=== PATIENT | male | born 1950 | race Caucasian/White ===

== ENCOUNTER → 2020-12-03 10:07 | Outpatient (CLI) | payer MEDICARE, SELFPAY ==
--- NOTE | 2020-12-03 10:13 | DI.RAD.S_ITS ---
PROCEDURE: FL BARIUM SWALLOW W SPEECH INDICATIONS: Choking sensation COMPARISON: None. TECHNIQUE: Examination was conducted in conjunction with speech pathology per standard protocol. In the lateral projection, filming was performed of the patient swallowing. AP projection filming may also be performed with patient swallowing. COMPARISON: FINDINGS: Function: The oral preparatory phase appears normal, with proper containment. The subsequent oral propulsive phase, pharyngeal phase, and esophageal phase of swallowing also appear normal with all proffered substances. No laryngotracheal penetration or aspiration. No pathologic vallecular pooling. Morphology: No cricopharyngeal bar is identified. No cervical esophageal webs. No Zenker's diverticulum. No strictures. IMPRESSION: No penetration or aspiration. Please see speech pathology report for complete findings. Dictated by: Michael Garcia M.D. on 12/03/2020 at 12:35 Approved by: Michael Garcia M.D. on 12/03/2020 at 12:35
--- NOTE | 2020-12-03 14:43 | ST.SWALLOW ---
Visit Care Team Role Provider Type Arya Inman MD Attending Provider Non-Staff Primary Care Provider Referring Provider Specialty: Internal Medicine Address: [address] [place], [place] [address], [place], [address] Email: Modified Barium Swallow Study JOINERY SETTER OUT Modified Barium Swallow Study Start: 12/03/20 11:20 Freq: Status: Active Protocol: Document 12/03/20 11:25 LNK (Rec: 12/03/20 11:58 LNK [id number]) Modified Barium Swallow Study Total Time Visit Start Time 10:30 Visit Stop Time 11:00 Total Visit Minutes 30 Referral Referring Physician Arya Inman MD Reason for Referral choking sensation Setting Setting Outpatient Care Patient Information Identification Type Name,Date of Patient History Pt was seen for a Modified Barium Swallow Study (MBSS) at the referral of his physician to rule out aspiration or possible Zenker's diverticulum . According to the pt, he will , at times, sense solids entering a pocket in his throat. He reported having 2 pockets (left and right sides of neck) that collect foods. When this happens, he can cough significantly as if choking, or just feel there is something in the pocket that he tries to cough up. He will frequently cough up a piece of undigested food and the coughing ends. Pt noted that this has been happening for ~ 8-10 years, having increased in frequency over the past 2 years. Subjective Observations Pt was seated in the fluoroscopy chair. Instructions and procedures were described to the pt who indicated he understood and agreed to proceed. Patient Positioning Position View Lat-A/P Imaging Lateral View Textures Administered Trials Presented Thin Liquid via Spoon,Thin Liquid via Cup,Amenia Liquid via Cup,Pudding Thick Liquid via Spoon,Regular Textures Oral Phase Source: MBSIMP (TM) (C) Bolus Specific Scoring Grid Lip Closure No Impairment (WNL) Tongue Control During Bolus Hold No Impairment (WNL) Bolus Prep/Mastication No Impairment (WNL) Bolus Transport/Lingual Motion No Impairment (WNL) A/P Lingual Propulsion Delay No Oral Residue WFL Residue Clearing WFL Nasal Regurgitation No Additional Oral Phase Observations Dentition was natural in good hygiene. All structures and functions were observed to be WNL. Diadochokinesis was observed to be WFL. Pharyngeal Phase Source: MBSIMP (TM) (C) Bolus Specific Scoring Grid Delayed Initiation of Pharyngeal Swallow Yes: Premature spillage of bolus to the pyriform sinuses pre-swallow Soft Palate Elevation WFL Tongue Base Strength/Range of Motion Mild Impairment Residue Along the Tongue Base Trace to minimal residue Clearance of Residue Along Tongue Base Minimal Impairment Laryngeal Elevation Moderate Impairment Anterior Hyoid Movement Moderate Impairment Epiglottic Range of Motion Mild Impairment Vallecular Residue Yes Clearance of Vallecular Residue Minimal Impairment Laryngeal Vestibular Closure Moderate Impairment Pharyngeal Stripping Wave Minimal Impairment Posterior Pharyngeal Wall Residue Trace to minimal Clearance of Posterior Pharyngeal Wall WFL Residue Upper Esophageal Sphincter Opening WFL Residue in the Pyriform Sinuses Yes: esophageal backflow into pyriform sinuses observed x4 Clearance of Residue in the Pyriform Mild Impairment Sinuses Esophageal Clearance Upright Position Moderate Impairment Pharyngoesophageal Backflow Observed Yes Additional Pharyngeal Phase Observations The MBSS was reviewed in a [id number] manner to fully evaluate the pt's swallow function. Premature spillage to the pyriform sinuses was observed with reduced laryngeal elevation. Forward movement of the hyoid was also reduced resulting in tongue base and valecullar residue with poor linguapharyngeal contact. Epiglottic inversion was complete, however the laryngeal seal was weak and resulted in penetration of contrast x7 into the laryngeal vestibule (Penetration Aspiration Scale = 3 on 1-8 range). After penetration into the vestibule, contrast remained on the anterior wall of the throid cartilage over the course of the MBSS. Residual contrast was cleared from vestibule with cued throat-clear. No aspiration was observed. Overall pharyngeal residue was observed at the tongue base, the valeculla and the pyriform sinuses. Subsequent swallows (spontaneous and cued) were effective in clearing pharyngeal residue. There was no evidence of A/P View Textures Administered Trials Presented Thin Liquid via Cup,Regular Textures A/P View Observations Residue Observed Pyriform Sinus Right,Pyriform Sinus Left Esophageal Function Reverse Peristalsis Esophageal Clearance Upright Position Minimal Impairment Additional Observations On lateral view, retained residue was observed in the the upper esophagus across all trials. Esophageal backflow was observed through the UES into the pyriform sinuses x4. At times the flow was noted to result in contrast residual approximately one third to one half of the pyriform sinuses. On the A-P view a screening scan of the esophagus to the stomach there was reverse peristalsis observed. Clinical Impressions Dysphagia Type mild pharyngeal phase dysphagia Findings Mild pharyngeal phase dysphagia was observed. The epiglottic seal was weak which allowed penetration into the laryngeal vestibule x7 leaving contrast residue within the anterior wall of the thyroid cartilage. Additionally, there was pharyngoesophageal backflow into the pyriform sinuses observed that potentially could flow into the laryngeal opening. This backflow could contain small pieces of solids with liquids. Both would be capable of triggering cough/choke. The pt reports coughing up some solid foods during these episodes. It is possible that solids could be within the backflow described above. Patient Appropriate for Therapy No Recommendations Treatment Plan Recommended Referrals Primary Care Physician,GI Consult Additional Recommendations/Comments Recommend referral to GI specialist for consultation.
== END ==
PROVIDERS: PCP Internal Medicine; Referring Provider Internal Medicine; Visit Provider Internal Medicine
DX: R13.19 Other dysphagia (principal)
CPT/HCPCS: 74230; 92611

== ENCOUNTER → 2022-10-09 13:20 | Outpatient (CLI) | payer MEDICARE, SELFPAY ==
--- NOTE | 2022-10-09 | DI.CT.S_ITS ---
PROCEDURE: CT UE LT WO CON INDICATIONS: Primary osteoarthritis, left shoulder TECHNIQUE: Noncontrast 1-1.5 mm thick sections acquired from the acromioclavicular joint to the inferior scapula, with coronal and sagittal reformatting. COMPARISON: None. FINDINGS: Image quality: Excellent. Bones: Moderate acromioclavicular joint osteoarthritic changes are seen with joint space narrowing, subchondral sclerosis and downward osteophyte formation depressing the musculotendinous junction of supraspinatus. Severe glenohumeral joint osteoarthritic changes are noted with joint space narrowing, subchondral sclerosis and cyst formation and prominent inferior marginal osteophyte formation. No fracture or dislocation. No suspicious bony lesions. Visualized left upper ribs are intact. Soft tissues: There is no full-thickness rotator cuff tendon rupture. Mild supraspinatus muscle atrophy is noted on sagittal images. No abnormal soft tissue calcifications. No significant joint effusion or calcified intra-articular loose bodies. No axillary lymphadenopathy. Visualized left lung field is clear. IMPRESSION: 1. Severe glenohumeral joint osteoarthritis and moderate acromioclavicular joint osteoarthritis. No shoulder fracture or dislocation. No suspicious bony lesions. 2. No full-thickness rotator cuff tendon rupture. Mild supraspinatus muscle atrophy. No abnormal soft tissue calcifications or calcified intra-articular loose bodies. Dictated by: Manuelito Saini M.D. on 10/09/2022 at 14:47 Approved by: Manuelito Saini M.D. on 10/09/2022 at 15:04
== END ==
PROVIDERS: PCP Internal Medicine; Referring Provider Orthopaedic Surgery; Visit Provider Orthopaedic Surgery
DX: M19.012 Primary osteoarthritis, left shoulder (principal)
CPT/HCPCS: 73200

== ENCOUNTER 2023-02-01 08:58 | Inpatient (IN) | payer MEDICARE, SELFPAY ==
[2023-01-25 13:30] VITALS: BMI 44.3
[2023-02-01] VITALS (9 sets, daily range): BP systolic 125–146; BP diastolic 54–85; PULSE 61–93; RESP 12–21; TEMP 36.1–36.5; O2SAT 95–98; BMI 44.7
--- NOTE | 2023-02-01 07:18 | DI.RAD.S_ITS ---
PROCEDURE: XR SHOULDER LT MIN 2V INDICATIONS: postop TECHNIQUE: 1 views of the shoulder were acquired. COMPARISON: None. FINDINGS: Bones: No fractures or dislocations. No suspicious bony lesions. Visualized ribs appear intact. Left partial shoulder arthroplasty. Soft tissues: No suspicious soft tissue calcifications. Expected postoperative appearance overlying the left shoulder. IMPRESSION: Expected postoperative appearance of the left shoulder arthroplasty. Dictated by: Pedro Garcia M.D. on 02/01/2023 at 15:23 Approved by: Pedro Garcia M.D. on 02/01/2023 at 15:24
[2023-02-01] MEDS: ACETAMINOPHEN 325 MG TABLET 975 MG PO (09:53)
[2023-02-01] MEDS: GABAPENTIN 300 MG CAPSULE PO (09:53)
[2023-02-01] MEDS: LACTATED RINGERS 1,000 ML 42 ML IV ×2 (09:55→13:19)
--- NOTE | 2023-02-01 10:36 | PM.PREOP ---
Pre-operative Note Interval Note History & Physical reviewed/Exam performed by Physician: Yes Changes to H&P: No
[2023-02-01] MEDS: CEFAZOLIN VIAL 1 GM in SODIUM CHLORIDE 0.9% 100 ML IV (11:27)
[2023-02-01] MEDS: CEFAZOLIN 2 GM/100 ML PREMIX 100 ML IV (11:27)
[2023-02-01] MEDS: TRANEXAMIC ACID 1,000 MG VIAL 1000 MG INJ ×2 (11:27→14:04)
--- NOTE | 2023-02-01 12:08 | SUR.OPER ---
Beach chair with Ewa/Julia shoulder positioner. Lower body on padded OR bed. Head in foam padded head cradle, secured with straps. Non-operative arm secured <90 degrees abduction. Pillow under knees. Safety belt at thigh. Cloth tape over blanket over lower legs.
--- NOTE | 2023-02-01 14:13 | PM.OP.1 ---
Operative Date/Time/Diagnoses Date of procedure: 02/01/23 Time of procedure: 14:14 Pre-op diagnosis: Left shoulder glenohumeral arthritis Post-op diagnosis: same Procedure & Clinicians Procedure: Left anatomic total shoulder arthroplasty Same procedure as scheduled: Yes Indications: Indications: This is a 72-year-old male who has primary osteoarthritis of the glenohumeral joint. Symptoms have been present for years, insidious onset. Patient has failed conservative therapy including injections, physical therapy, anti-inflammatories and activity modification. After extensive discussion in clinic, they wished to go forward with surgery. Risks and benefits were described including the risk of infection, bleeding, damage to internal structures including nerves. We also discussed the risk of failure of surgery and the need for revision surgery as well as the risk of anesthesia. The patient expressed understanding with these risks and wished to go forward with surgery. Surgeon: Kushal Tatum Land Development Manager: Ursula Galloway Anesthesia Type: General Operative Notes Findings: Findings: Osteoarthritis of the glenoid and humeral head as noted on preoperative imaging and under direct visualization Prosthetic devices, grafts, tissues, transplants, or devices: [employer]plants CortiLoc Pegged Glenoid UHMWPE L40 Simpliciti Nucleus Size 3 Simpliciti CoCr head size 50 x 19 Estimated Blood Loss (mL): 50 Procedure in detail: Operative note: Patient was seen in the preoperative holding unit. The correct left shoulder was identified and marked with my initials. Again we discussed the risks and benefits of surgery and they wished to go forward with surgery. The patient was brought back to the operating room and placed supine on the operating table. he underwent smooth endotracheal intubation. All prominences were padded and they were placed into the beach chair position. Intravenous antibiotics were given. The left shoulder was then prepped with the standard sterile preparation and draping. A time-out was then performed in my initials were again identified on the correct shoulder. 2 g of IV tranexamic acid was given. A standard deltopectoral incision was made. Skin flaps were made. The cephalic vein was identified and retracted laterally. This was protected throughout the remainder of the case. Sharp dissection was made along the deltoid, subacromial and subcoracoid space to release adhesions. The conjoined tendon was identified and the axillary nerve was palpated and continuous using the tug test. It was protected throughout the remainder of the case. A brown retractor was placed underneath the deltoid muscle and a darach retractor underneath the conjoint tendon. The anterior circumflex artery and associated veins on the lower border of the subscapularis were identified and tied off using 0-Vicryl. The biceps tendon was identified in the bicipital groove. This was released from its sheath, and taken from its origin on the glenoid and tied into the pectoralis tendon for a solid tenodesis. We then began a subscapularis peel. The subscapularis was tagged with an Ethibond suture. A 360 degree circumferential release of the subscapularis was performed with protection of the axillary nerve. The coracohumeral ligament was released at the base of the coracoid. The coracoacromial ligament was left intact. The shoulder was then dislocated. Osteophytes were removed using combination of rongeur and osteotome. The rotator cuff was noted to be intact. Using an oscillating saw a conservative humeral head cut was made using the patient's solomon version. The head was measured and a guide for size 3 simpliciti humeral head was used to drill a central hole followed by impaction. Attention was then turned to the glenoid. After retracting the humeral head posteriorly, release of the capsule and labrum was performed. Central guidewire was placed. The glenoid was then reamed and a size large 40 guide was used. Peripheral holes were drilled. At this point dilute Betadine wash was performed for 2 minutes. Medium viscosity cement was mixed and the drill holes were completely dried. A all polyethylene pegged glenoid was then selected, and cemented into the glenoid. Turning back to the humerus, the humeral head was delivered and 3 seperate Nice Loupes were passed through drill holes in the bicipital groove. The Size 3 nucleus was then impacted into the humerus and a size 50 x 19 stemless humeral head was placed. The shoulder was then reduced and again brought through range of motion and was felt to be stable. The interval was too wide to be closed. The subscapularis was then repaired using a modified racking hitch with niece loupes. The deltopectoral interval was then closed with #2 Ethibond. The skin was closed with 2-0 PDS and makeda followed by Aquacel dressing. Patient was awoken from anesthesia and brought back to the postoperative recovery unit without issue. They were placed into a sling. Assisting participation: This operation could not have been safely performed (without compromising the technical results or length of the procedure) without the assistance of a skilled university administrative assistant. The university administrative assistant was medically necessary for proper positioning, retraction and manipulation of instruments, proper exposure, graft prep, and manipulation of tissue. Complications: none Post-operative Condition: stable Disposition: PACU Plan for aftercare: Postoperative instructions: Sling to remain on for 6 weeks. No external rotation past neutral for 6 weeks. Okay for sling to come off for shower and gentle pendulum exercises. Okay to shower over the Aquacel dressing. If any water gets underneath the dressing, remove the dressing. First postoperative visit in 2 weeks.
[2023-02-01] MEDS: KETOROLAC 30 MG/ML VIAL IV (14:48)
[2023-02-01] MEDS: OXYCODONE IR 5 MG TABLET PO (14:49)
[2023-02-01] MEDS: hydrOXYzine pamoate 25 MG CAPSULE PO (14:49)
--- NOTE | 2023-02-01 14:56 | SUR.PHASEI ---
Started on IS. Able to achieve 1250cc.
== END 2023-02-01 15:42 | disposition home or self-care (01) | DRG 483 ==
PROVIDERS: Admitting Provider Orthopaedic Surgery; PCP Internal Medicine; Referring Provider Orthopaedic Surgery; Visit Provider Orthopaedic Surgery
PROC: 0RRK0JZ Replacement of Left Shoulder Joint with Synthetic Substitute, Open Approach (ICD-10-PCS; CPT 23472; principal; 2023-02-01 10:45)
DX: M19.012 Primary osteoarthritis, left shoulder (principal); Z20.822 Contact with and (suspected) exposure to COVID-19
CPT/HCPCS: 64450; 73030; C1776; C1713; J0690; J1100; J1885; J2250; J2405; J2704; J3010

== ENCOUNTER 2024-04-07 13:45 | Outpatient (RCR) | payer MEDICARE, SELFPAY ==
--- NOTE | 2024-01-07 17:28 | PT.OIE ---
Current Diagnoses Lymphedema, not elsewhere classified (01/07/24) Soft tissue disorder, unspecified (01/07/24) Past Medical History (Last Updated 01/25/23 @ 14:14 by Maritza Randhawa RN) Asthma Deviated nasal septum Easy bruisability HLD (hyperlipidemia) HTN (hypertension) Lower back pain Macular pucker, right eye Neuropathy RAMON on CPAP Osteoarthritis Pre-diabetes Past Surgical History (Last Updated 01/25/23 @ 14:14 by Maritza Randhawa RN) History of total left knee replacement History of total right knee replacement Hx of bilateral cataract extraction Hx of hernia repair (~09/2022) Visit Care Team Role Provider Type Arya Inman MD Attending Provider Non-Staff Family Provider Primary Care Provider Referring Provider Specialty: Internal Medicine Address: [address] [place] [address] [address], [place], [address] Email: Physical Therapy Initial Evaluation PT-OP-A Visit Information Start: 01/03/24 16:38 Freq: Status: Active Protocol: Document 01/07/24 09:49 SAK (Rec: 01/07/24 10:36 [facility] [id number]) Out-Patient Physical Therapy Visit Information Visit Information Visit Type Initial Evaluation Visit Start Time 09:49 Visit Stop Time 11:13 Visit Number 1 Evaluation Information Evaluation Date 01/07/24 PT-OP-B Current Condition Start: 01/03/24 16:38 Freq: Status: Active Protocol: Document 01/07/24 09:49 SAK (Rec: 01/07/24 10:36 [facility] [id number]) Current Condition History of Current Condition Onset Date 15 yrs Current Complaints scott LE swelling History of Current Condition Reports long history of episodic swelling LE's, especially with travel, then when home takes 2-3 weeks for it to go away, more recently took 2-3 month. Happens with driving, trains, flying. Just got back from [place]. Doesn't wear compression stocking, weight makes him unable to do. Had scott TKA's 2014 and 2015. Has some knee high compression stockings, doesn't wear. Saw vascular surgeon who told him he didn't have venous insufficiency. 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 Has neuropathy, some sensory loss. Treatment Goals Patient/Caregiver Goals Decrease and be able to self manage lymphedema. Prior Functional Status Baseline Function- ADL's Independent Baseline Function- Mobility Independent Baseline Function- Work/School retired Current Functional Impairments (Reported) Functional Limitations- Mobility/Gait indep, slow, labored. Functional Limitations- Recreation/ cooking Hobbies PT-OP-C Subjective Start: 01/03/24 16:38 Freq: Status: Active Protocol: Document 01/07/24 09:49 [facility] (Rec: 01/07/24 17:26 [facility] [id number]) Patient Questionnaires Lymphedema Life Impact Score Lymphedema Score 39 PT-OP-G Mobility & Gait Start: 01/03/24 16:38 Freq: Status: Active Protocol: Document 01/07/24 09:49 [facility] (Rec: 01/07/24 11:14 [facility] [id number]) OP Gait Assessment Gait Gait Assistance Required: Independent Assistive Devices Assistive Device None Gait Deviations General Gait Pattern Decreased Stride Length, Decreased Feet Clearance PT-OP-J Posture/Palpation/Skin Start: 01/03/24 16:38 Freq: Status: Active Protocol: Document 01/07/24 09:49 [facility] (Rec: 01/07/24 11:14 [facility] [id number]) Palpation Assessment Location scott LE's Palpation Findings Edema,Soft Tissue Tightness Palpation Details no increased warmth or fibrosis Skin Assessment Other Assessments Skin Assessment Comments Dry but no thickening or fibrosis, no increased warmch, no discoloration. Several regions of varicosiy scott LE's PT-OP-K Range of Motion Start: 01/03/24 16:38 Freq: Status: Active Protocol: Document 01/07/24 09:49 [facility] (Rec: 01/07/24 11:14 [facility] [id number]) Hip Goniometric Range of Motion Hip scott Hip ROM WFL Yes Knee Goniometric Range of Motion Knee scott Knee ROM WFL Yes Ankle and Foot Goniometric Range of Motion Ankle and Foot scott Ankle/Foot ROM WFL No Dorsiflexion with Knee Flexed 0 Dorsiflexion with Knee Extended 5 Plantarflexion 40 Ankle and Foot ROM Limitations ROM Limitations Soft Tissue Tightness,Swelling PT-OP-L Special Tests Start: 01/03/24 16:38 Freq: Status: Active Protocol: Document 01/07/24 09:49 [facility] (Rec: 01/07/24 17:28 [facility] [id number]) Special Tests Other Special Tests Special Tests Stemmer: positive scott PT-OP-N Lymphedema Start: 01/03/24 16:38 Freq: Status: Active Protocol: Document 01/07/24 09:49 [facility] (Rec: 01/07/24 10:36 [facility] [id number]) Lymphedema Measurements Lower Extremity Circumference Measurements Right Affected MT Heads 27.3 cm Mid-foot 28.3 cm Medial Malleolus 39.6 cm 10 cm From Medial Malleolus 39.6 cm 20 cm From Medial Malleolus 46.8 cm 30 cm From Medial Malleolus 52.3 cm 40 cm From Medial Malleolus 47.7 cm 50 cm From Medial Malleolus 59.2 cm 60 cm From Medial Malleolus 65.7 cm 70 cm From Medial Malleolus 74 cm Knee Joint 54 cm Left Affected MT Heads 27.9 cm Mid-foot 29.5 cm Medial Malleolus 40.2 cm 10 cm From Medial Malleolus 42.3 cm 20 cm From Medial Malleolus 52.5 cm 30 cm From Medial Malleolus 54.7 cm 40 cm From Medial Malleolus 47.8 cm 50 cm From Medial Malleolus 53.7 cm 60 cm From Medial Malleolus 68 cm 70 cm From Medial Malleolus 74 cm Knee Joint 60.2 cm PT-OP-Q Treatments Start: 01/03/24 16:38 Freq: Status: Active Protocol: Document 01/07/24 09:49 [facility] (Rec: 01/07/24 11:14 [facility] [id number]) Cardio Equipment Recumbent Stepper (Sci-Fit) Duration (Minutes) 10 Resistance 1 Seat Position 16 Other to facilitate lymphatic flow Lymphedema Treatment Manual Lymphatic Drainage Location performed and included patient instruction Lymphedema Wrapping Other discussed and showed method and needed supplies. Patient to check with insurance for coverage. Compression Garment Assessment Compression Garment Assessment Details patient to bring compression stockings next session Patient Education Lymphedema Pathology instructed using employment officer Lymphedema Prevention issued handout and discussed Lymphedema Precautions issued handout and discussed Compression Garments general discussion of benefit, need for consistsency, patient to brin Self Manual Lymphatic Drainage instructed and issued handout Sequential Lymphedema Exercises instructed and issued handout PT-OP-T Assessment and Plan Start: 01/03/24 16:38 Freq: Status: Active Protocol: Document 01/07/24 09:49 [facility] (Rec: 01/07/24 17:26 [facility] [id number]) Physical Therapy Assessment Rehab Potential Rehabilitation Potential Good Evaluation Complexity Number of Personal Factors/Comorbidities 1-2 Number of Body Systems Impaired 3 Clinical Presentation at Evaluation Evolving Impairments Impairments Edema,Integument,ROM Goals Three Impairment decreased ankle ROM and flexibility impacting function Short Term Goal (STG) Patient will be instructed in ROM and flexibility exercises for scott ankles STG Duration 03/02/24 Retirement Goal (LTG) Improve ROM and flexibility to WNL for improved function scott ankles LTG Duration 04/08/24 Two Impairment Lymphedema Life impact scale 28% Short Term Goal (STG) Decrease Lymphedema Life Impact Scale to no greater than 18% as measure of improved activity tolerance and quality of life STG Duration 03/02/24 Plug Drill Operator Goal (LTG) Decrease Lymphedema Life Impact Scale to no greater than 10% as measure of improved activity tolerance and quality of life LTG Duration 04/08/24 One Impairment Lymphedema scott LE's Short Term Goal (STG) Patient will be instructed in all aspects of lymphedema self -care to include skin care, elevation, self-massage, self- bandaging/compression options, and lymphedema exercises. STG Duration 03/02/24 Retirement Goal (LTG) Decrease patient?s lymphedema to a stable level (no increase or decrease greater than 1 cm over the course of 1 week), patient to be independent with all aspects of self-care for lymphedema, and will obtain appropriate compression garment for lymphedema management in the home. LTG Duration 04/08/24 Assessment Summary Assessment Patient presents to PT with function limiting lymphedema of unusual presentation with frequent exacerbations with all kinds of travel. He doesn 't wear any compression garments or have knowledge of how to self manage his lymphedema. He has a family history including mother and grandmother who he reports had fluid leaking out of their legs as they got older. Patient is at high risk for complications from lymphedema including cellulitis and wounds. FEel he would benefit from PT to address above goals to decrease his lymphedema, improve his mobility, obtain appropriate compression garments and be able to self manage his lymphedema fci. Feel he is a good candidate for a sequential pneumatic pump to be used in his home to assist with self management and prevent complications. Physical Therapy Plan Frequency and Duration Frequency of Treatment 20 visits Duration of treatment (weeks) 12 Plan of Care Start Date 01/07/24 Plan of Care End Date 04/08/24 Therapeutic Interventions Therapeutic Interventions Home Exercise Program, Lymphedema Management,Manual Therapy,Patient/Caregiver Education,Self-Care/Home Management,Soft Tissue Mobilization,Taping, Therapeutic Exercises Modalities Vasopneumatic Devices Next Visit Focus/Plan Next Note Type Treatment Note Next Visit Plan MLD bilateral LE's, skin care, lymphedema exercises, evaluate patient compression stockings, compression bandaging, possible trial sequential pneumatic pump
--- NOTE | 2024-01-07 17:29 | PT.OPPOC ---
Physical, Occupational & Speech Therapy At [facility] Current Diagnoses Lymphedema, not elsewhere classified (01/07/24) Soft tissue disorder, unspecified (01/07/24) Visit Care Team Role Provider Type Arya Inman MD Attending Provider Non-Staff Family Provider Primary Care Provider Referring Provider Specialty: Internal Medicine Address: [facility] [address], [place], [address] Email: Plan Of Care PT-OP-T Assessment and Plan Start: 01/03/24 16:38 Freq: Status: Active Protocol: Document 01/07/24 09:49 SAK (Rec: 01/07/24 17:26 [facility]AK [id number]) Physical Therapy Assessment Rehab Potential Rehabilitation Potential Good Evaluation Complexity Number of Personal Factors/Comorbidities 1-2 Number of Body Systems Impaired 3 Clinical Presentation at Evaluation Evolving Impairments Impairments Edema,Integument,ROM Goals Three Impairment decreased ankle ROM and flexibility impacting function Short Term Goal (STG) Patient will be instructed in ROM and flexibility exercises for scott ankles STG Duration 03/02/24 Long-Term Goal (LTG) Improve ROM and flexibility to WNL for improved function scott ankles LTG Duration 04/08/24 Two Impairment Lymphedema Life impact scale 28% Short Term Goal (STG) Decrease Lymphedema Life Impact Scale to no greater than 18% as measure of improved activity tolerance and quality of life STG Duration 03/02/24 Long-Term Goal (LTG) Decrease Lymphedema Life Impact Scale to no greater than 10% as measure of improved activity tolerance and quality of life LTG Duration 04/08/24 One Impairment Lymphedema scott LE's Short Term Goal (STG) Patient will be instructed in all aspects of lymphedema self -care to include skin care, elevation, self-massage, self- bandaging/compression options, and lymphedema exercises. STG Duration 03/02/24 Long-Term Goal (LTG) Decrease patient?s lymphedema to a stable level (no increase or decrease greater than 1 cm over the course of 1 week), patient to be independent with all aspects of self-care for lymphedema, and will obtain appropriate compression garment for lymphedema management in the home. LTG Duration 04/08/24 Assessment Summary Assessment Patient presents to PT with function limiting lymphedema of unusual presentation with frequent exacerbations with all kinds of travel. He doesn 't wear any compression garments or have knowledge of how to self manage his lymphedema. He has a family history including mother and grandmother who he reports had fluid leaking out of their legs as they got older. Patient is at high risk for complications from lymphedema including cellulitis and wounds. FEel he would benefit from PT to address above goals to decrease his lymphedema, improve his mobility, obtain appropriate compression garments and be able to self manage his lymphedema intermediate frame tender. Feel he is a good candidate for a sequential pneumatic pump to be used in his home to assist with self management and prevent complications. Physical Therapy Plan Frequency and Duration Frequency of Treatment 20 visits Duration of treatment (weeks) 12 Plan of Care Start Date 01/07/24 Plan of Care End Date 04/08/24 Therapeutic Interventions Therapeutic Interventions Home Exercise Program, Lymphedema Management,Manual Therapy,Patient/Caregiver Education,Self-Care/Home Management,Soft Tissue Mobilization,Taping, Therapeutic Exercises Modalities Vasopneumatic Devices Next Visit Focus/Plan Next Note Type Treatment Note Next Visit Plan MLD bilateral LE's, skin care, lymphedema exercises, evaluate patient compression stockings, compression bandaging, possible trial sequential pneumatic pump Plan of Care Dates Plan of Care Start Date 01/07/24 Plan of Care End Date 04/08/24 Electronically Signed by: Rach Valente, PT 01/07/24 [id number] If you are in agreement with this Plan of Care, please return a signed and dated copy. I have reviewed this Plan of Care and certify that the skilled therapy services above are required to meet the patient?s needs. Physician Signature Date Printed Name and Credentials Clinical Instructor Signature Printed Name and Credentials
--- NOTE | 2024-01-09 12:07 | PT.OTN ---
Current Diagnoses Lymphedema, not elsewhere classified (01/09/24) Soft tissue disorder, unspecified (01/09/24) Physical Therapy Treatment Note PT-OP-A Visit Information Start: 01/03/24 16:38 Freq: Status: Active Protocol: Document 01/09/24 10:31 SAK (Rec: 01/09/24 10:58 [facility] [id number]) Out-Patient Physical Therapy Visit Information Visit Information Visit Type Treatment Note Visit Start Time 10:33 Visit Stop Time 12:03 Visit Number 2 Evaluation Information Evaluation Date 01/07/24 PT-OP-B Current Condition Start: 01/03/24 16:38 Freq: Status: Active Protocol: Document 01/09/24 10:31 SAK (Rec: 01/09/24 10:58 [facility] [id number]) Current Condition History of Current Condition Onset Date 15 yrs Current Complaints scott LE swelling History of Current Condition Reports long history of episodic swelling LE's, especially with travel, then when home takes 2-3 weeks for it to go away, more recently took 2-3 month. Happens with driving, trains, flying. Just got back from [place]. Doesn't wear compression stocking, weight makes him unable to do. Had scott TKA's 2014 and 2015. Has some knee high compression stockings, doesn't wear. Saw vascular surgeon who told him he didn't have venous insufficiency. 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 Has neuropathy, some sensory loss. Treatment Goals Patient/Caregiver Goals Decrease and be able to self manage lymphedema. PT-OP-C Subjective Start: 01/03/24 16:38 Freq: Status: Active Protocol: Document 01/09/24 10:31 SAK (Rec: 01/09/24 10:58 [facility] [id number]) OP-PT Subjective Patient Comments Patient Comments REports feeling the lymphatic massage seems to be helping both PT and him doing at home. Lost 4 lbs of fluid last couple days. PT-OP-G Mobility & Gait Start: 01/03/24 16:38 Freq: Status: Active Protocol: Document 01/07/24 09:49 SAK (Rec: 01/07/24 11:14 [facility] [id number]) OP Gait Assessment Gait Gait Assistance Required: Independent Assistive Devices Assistive Device None Gait Deviations General Gait Pattern Decreased Stride Length, Decreased Feet Clearance PT-OP-J Posture/Palpation/Skin Start: 01/03/24 16:38 Freq: Status: Active Protocol: Document 01/07/24 09:49 [facility] (Rec: 01/07/24 11:14 [facility] [id number]) Palpation Assessment Location scott LE's Palpation Findings Edema,Soft Tissue Tightness Palpation Details no increased warmth or fibrosis Skin Assessment Other Assessments Skin Assessment Comments Dry but no thickening or fibrosis, no increased warmch, no discoloration. Several regions of varicosiy scott LE's PT-OP-K Range of Motion Start: 01/03/24 16:38 Freq: Status: Active Protocol: Document 01/07/24 09:49 [facility] (Rec: 01/07/24 11:14 [facility] [id number]) Hip Goniometric Range of Motion Hip scott Hip ROM WFL Yes Knee Goniometric Range of Motion Knee scott Knee ROM WFL Yes Ankle and Foot Goniometric Range of Motion Ankle and Foot scott Ankle/Foot ROM WFL No Dorsiflexion with Knee Flexed 0 Dorsiflexion with Knee Extended 5 Plantarflexion 40 Ankle and Foot ROM Limitations ROM Limitations Soft Tissue Tightness,Swelling PT-OP-L Special Tests Start: 01/03/24 16:38 Freq: Status: Active Protocol: Document 01/07/24 09:49 [facility] (Rec: 01/07/24 17:28 [facility] [id number]) Special Tests Other Special Tests Special Tests Stemmer: positive scott PT-OP-N Lymphedema Start: 01/03/24 16:38 Freq: Status: Active Protocol: Document 01/09/24 10:31 [facility] (Rec: 01/09/24 10:58 [facility] [id number]) Lymphedema Measurements Lower Extremity Circumference Measurements Right Affected MT Heads 27.3 cm Mid-foot 28 cm Medial Malleolus 38.3 cm 10 cm From Medial Malleolus 38.3 cm 20 cm From Medial Malleolus 46.8 cm 30 cm From Medial Malleolus 52.3 cm 40 cm From Medial Malleolus 47.6 cm 50 cm From Medial Malleolus 57.9 cm 60 cm From Medial Malleolus 65.4 cm Knee Joint 53.5 cm Left Affected MT Heads 27.9 cm Mid-foot 29.5 cm Medial Malleolus 39.7 cm 10 cm From Medial Malleolus 40.8 cm 20 cm From Medial Malleolus 50.8 cm 30 cm From Medial Malleolus 54.9 cm 40 cm From Medial Malleolus 47.7 cm 50 cm From Medial Malleolus 60.2 cm 60 cm From Medial Malleolus 68.3 cm 70 cm From Medial Malleolus 74 cm Knee Joint 52 cm PT-OP-Q Treatments Start: 01/03/24 16:38 Freq: Status: Active Protocol: Document 01/09/24 10:31 [facility] (Rec: 01/09/24 10:58 [facility] [id number]) Cardio Equipment Recumbent Stepper (Sci-Fit) Duration (Minutes) 10 Resistance 1 Seat Position 16 Other to facilitate lymphatic flow Lymphedema Treatment Manual Lymphatic Drainage Location performed and included patient instruction Lymphedema Wrapping Other KT tape; 3 fan strips to left LE from toes to knee trial Patient unable to bandage on his own so no bandaging done. Sequential Lymphedema Exercises Location scott LE's Comments Sci-Fit x 10 min as above Compression Garment Assessment Compression Garment Assessment Details patient brought compression stockings; too small at this time Patient Education Other issued handouts regarding plane travel, precautions. PT-OP-R Modalities Start: 01/03/24 16:38 Freq: Status: Active Protocol: Document 01/09/24 10:31 [facility] (Rec: 01/09/24 12:06 [facility] [id number]) Compression Pump Treatment Treatment Location scott LE's Pressure Amount (mmHg) (mmHG) 40 Inflation Time (Seconds) 30 Deflation Time (Seconds) 10 Treatment Tolerance Good Treatment Comments noted decrease in edema after pump scott LE's PT-OP-T Assessment and Plan Start: 01/03/24 16:38 Freq: Status: Active Protocol: Document 01/09/24 10:31 [facility] (Rec: 01/09/24 10:58 [facility] [id number]) Physical Therapy Assessment Goals Three Impairment decreased ankle ROM and flexibility impacting function Short Term Goal (STG) Patient will be instructed in ROM and flexibility exercises for scott ankles STG Duration 03/02/24 Carroting Machine Operator Goal (LTG) Improve ROM and flexibility to WNL for improved function scott ankles LTG Duration 04/08/24 Two Impairment Lymphedema Life impact scale 28% Short Term Goal (STG) Decrease Lymphedema Life Impact Scale to no greater than 18% as measure of improved activity tolerance and quality of life STG Duration 03/02/24 Carroting Machine Operator Goal (LTG) Decrease Lymphedema Life Impact Scale to no greater than 10% as measure of improved activity tolerance and quality of life LTG Duration 04/08/24 One Impairment Lymphedema scott LE's Short Term Goal (STG) Patient will be instructed in all aspects of lymphedema self -care to include skin care, elevation, self-massage, self- bandaging/compression options, and lymphedema exercises. STG Duration 03/02/24 Penitentiary Goal (LTG) Decrease patient?s lymphedema to a stable level (no increase or decrease greater than 1 cm over the course of 1 week), patient to be independent with all aspects of self-care for lymphedema, and will obtain appropriate compression garment for lymphedema management in the home. LTG Duration 04/08/24 Progress Towards Goals Progress Towards Goals Progressing Toward Goals Assessment Summary Assessment Patient compliant to MLD at home, most circumferential measurements decreased. Patient current compression stockings still too small, can 't self bandage, trial KT tape to one side today to see if helpful (left). Physical Therapy Plan Frequency and Duration Frequency of Treatment 20 visits Duration of treatment (weeks) 12 Plan of Care Start Date 01/07/24 Plan of Care End Date 04/08/24 Therapeutic Interventions Therapeutic Interventions Home Exercise Program, Lymphedema Management,Manual Therapy,Patient/Caregiver Education,Self-Care/Home Management,Soft Tissue Mobilization,Taping, Therapeutic Exercises Modalities Vasopneumatic Devices Next Visit Focus/Plan Next Note Type Treatment Note Next Visit Plan Continue CDT, assess response to KT taping.
--- NOTE | 2024-01-14 11:16 | PT.OTN ---
Current Diagnoses Lymphedema, not elsewhere classified (01/14/24) Soft tissue disorder, unspecified (01/14/24) Physical Therapy Treatment Note PT-OP-A Visit Information Start: 01/03/24 16:38 Freq: Status: Active Protocol: Document 01/14/24 09:54 [facility]AK (Rec: 01/14/24 11:15 [facility] [id number]) Out-Patient Physical Therapy Visit Information Visit Information Visit Type Treatment Note Visit Start Time 09:50 Visit Stop Time 11:15 Visit Number 3 Evaluation Information Evaluation Date 01/07/24 PT-OP-B Current Condition Start: 01/03/24 16:38 Freq: Status: Active Protocol: Document 01/14/24 09:54 SAK (Rec: 01/14/24 11:15 [facility] [id number]) Current Condition History of Current Condition Onset Date 15 yrs Current Complaints scott LE swelling History of Current Condition Reports long history of episodic swelling LE's, especially with travel, then when home takes 2-3 weeks for it to go away, more recently took 2-3 month. Happens with driving, trains, flying. Just got back from [place]. Doesn't wear compression stocking, weight makes him unable to do. Had scott TKA's 2014 and 2015. Has some knee high compression stockings, doesn't wear. Saw vascular surgeon who told him he didn't have venous insufficiency. 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 Has neuropathy, some sensory loss. Treatment Goals Patient/Caregiver Goals Decrease and be able to self manage lymphedema. PT-OP-C Subjective Start: 01/03/24 16:38 Freq: Status: Active Protocol: Document 01/14/24 09:54 SAK (Rec: 01/14/24 11:15 [facility] [id number]) OP-PT Subjective Patient Comments Patient Comments Feels like legs are continuing to get smaller PT-OP-G Mobility & Gait Start: 01/03/24 16:38 Freq: Status: Active Protocol: Document 01/07/24 09:49 SAK (Rec: 01/07/24 11:14 [facility] [id number]) OP Gait Assessment Gait Gait Assistance Required: Independent Assistive Devices Assistive Device None Gait Deviations General Gait Pattern Decreased Stride Length, Decreased Feet Clearance PT-OP-J Posture/Palpation/Skin Start: 01/03/24 16:38 Freq: Status: Active Protocol: Document 01/07/24 09:49 SAK (Rec: 01/07/24 11:14 [facility] [id number]) Palpation Assessment Location scott LE's Palpation Findings Edema,Soft Tissue Tightness Palpation Details no increased warmth or fibrosis Skin Assessment Other Assessments Skin Assessment Comments Dry but no thickening or fibrosis, no increased warmch, no discoloration. Several regions of varicosiy scott LE's PT-OP-K Range of Motion Start: 01/03/24 16:38 Freq: Status: Active Protocol: Document 01/07/24 09:49 [facility] (Rec: 01/07/24 11:14 [facility] [id number]) Hip Goniometric Range of Motion Hip scott Hip ROM WFL Yes Knee Goniometric Range of Motion Knee scott Knee ROM WFL Yes Ankle and Foot Goniometric Range of Motion Ankle and Foot scott Ankle/Foot ROM WFL No Dorsiflexion with Knee Flexed 0 Dorsiflexion with Knee Extended 5 Plantarflexion 40 Ankle and Foot ROM Limitations ROM Limitations Soft Tissue Tightness,Swelling PT-OP-L Special Tests Start: 01/03/24 16:38 Freq: Status: Active Protocol: Document 01/07/24 09:49 [facility] (Rec: 01/07/24 17:28 [facility] [id number]) Special Tests Other Special Tests Special Tests Stemmer: positive scott PT-OP-N Lymphedema Start: 01/03/24 16:38 Freq: Status: Active Protocol: Document 01/14/24 09:54 [facility] (Rec: 01/14/24 11:15 [facility] [id number]) Lymphedema Measurements Lower Extremity Circumference Measurements Right Affected MT Heads 26.9 cm Mid-foot 27.8 cm Medial Malleolus 37.8 cm 10 cm From Medial Malleolus 35.7 cm 20 cm From Medial Malleolus 44.8 cm 30 cm From Medial Malleolus 50.5 cm 40 cm From Medial Malleolus 46.5 cm 50 cm From Medial Malleolus 58.2 cm 60 cm From Medial Malleolus 64.8 cm 70 cm From Medial Malleolus 73.8 cm Knee Joint 53.3 cm Left Affected MT Heads 27.5 cm Mid-foot 28.7 cm Medial Malleolus 39 cm 10 cm From Medial Malleolus 38.2 cm 20 cm From Medial Malleolus 48.5 cm 30 cm From Medial Malleolus 53.7 cm 40 cm From Medial Malleolus 47.1 cm 50 cm From Medial Malleolus 59.3 cm 60 cm From Medial Malleolus 67 cm 70 cm From Medial Malleolus 74.7 cm Knee Joint 50.7 cm PT-OP-Q Treatments Start: 01/03/24 16:38 Freq: Status: Active Protocol: Document 01/14/24 09:54 [facility] (Rec: 01/14/24 11:15 [facility] [id number]) Cardio Equipment Recumbent Stepper (Sci-Fit) Duration (Minutes) 10 Resistance 2 Seat Position 16 Other to facilitate lymphatic flow Lymphedema Treatment Manual Lymphatic Drainage Location performed and included patient instruction Lymphedema Wrapping Other application of compression stockings with donning aid with assist. Neither cage or slider worked well for patient ; PT manual assist, shown use of Dycem to assist with putting stockings on Sequential Lymphedema Exercises Location scott LE's Comments Sci-Fit x 10 min as above Compression Garment Assessment Compression Garment Assessment Details thinner compression stockings brought today; appear 15-20 mm Hg, too short but able to be donned. PT-OP-R Modalities Start: 01/03/24 16:38 Freq: Status: Active Protocol: Document 01/14/24 09:54 [facility] (Rec: 01/14/24 11:15 [facility] [id number]) Compression Pump Treatment Treatment Location scott LE's Pressure Amount (mmHg) (mmHG) 40 Inflation Time (Seconds) 30 Deflation Time (Seconds) 10 Treatment Tolerance Good Treatment Comments during MLD to opposite LE. PT-OP-T Assessment and Plan Start: 01/03/24 16:38 Freq: Status: Active Protocol: Document 01/14/24 09:54 [facility] (Rec: 01/14/24 11:15 [facility] [id number]) Physical Therapy Assessment Goals Three Impairment decreased ankle ROM and flexibility impacting function Short Term Goal (STG) Patient will be instructed in ROM and flexibility exercises for scott ankles STG Duration 03/02/24 Pai Gow Dealer Goal (LTG) Improve ROM and flexibility to WNL for improved function scott ankles LTG Duration 04/08/24 Two Impairment Lymphedema Life impact scale 28% Short Term Goal (STG) Decrease Lymphedema Life Impact Scale to no greater than 18% as measure of improved activity tolerance and quality of life STG Duration 03/02/24 Pai Gow Dealer Goal (LTG) Decrease Lymphedema Life Impact Scale to no greater than 10% as measure of improved activity tolerance and quality of life LTG Duration 04/08/24 One Impairment Lymphedema scott LE's Short Term Goal (STG) Patient will be instructed in all aspects of lymphedema self -care to include skin care, elevation, self-massage, self- bandaging/compression options, and lymphedema exercises. STG Duration 03/02/24 Pai Gow Dealer Goal (LTG) Decrease patient?s lymphedema to a stable level (no increase or decrease greater than 1 cm over the course of 1 week), patient to be independent with all aspects of self-care for lymphedema, and will obtain appropriate compression garment for lymphedema management in the home. LTG Duration 04/08/24 Progress Towards Goals Progress Towards Goals Progressing Toward Goals Assessment Summary Assessment LE circumferential masurements cont to decrease, didn't seem to be better with KT tape vs not so no tape today. Continue pt ed for compression stockings, ed in donning techniques and aides as patient unable to reach toes. Continue to encourage aquatic exercise. Physical Therapy Plan Frequency and Duration Frequency of Treatment 20 visits Duration of treatment (weeks) 12 Plan of Care Start Date 01/07/24 Plan of Care End Date 04/08/24 Therapeutic Interventions Therapeutic Interventions Home Exercise Program, Lymphedema Management,Manual Therapy,Patient/Caregiver Education,Self-Care/Home Management,Soft Tissue Mobilization,Taping, Therapeutic Exercises Modalities Vasopneumatic Devices Next Visit Focus/Plan Next Note Type Treatment Note Next Visit Plan Continue CDT, continue pt ed, problem solving for compression stockings; feel may need custom and patient advised of this. Cont encouragement in aquatic exercise.
--- NOTE | 2024-01-16 14:29 | PT.OTN ---
Current Diagnoses Lymphedema, not elsewhere classified (01/16/24) Soft tissue disorder, unspecified (01/16/24) Physical Therapy Treatment Note PT-OP-A Visit Information Start: 01/03/24 16:38 Freq: Status: Active Protocol: Document 01/16/24 10:34 [facility]AK (Rec: 01/16/24 10:57 [facility] [id number]) Out-Patient Physical Therapy Visit Information Visit Information Visit Type Treatment Note Visit Start Time 10:34 Visit Stop Time 12:00 Visit Number 4 Evaluation Information Evaluation Date 01/07/24 PT-OP-B Current Condition Start: 01/03/24 16:38 Freq: Status: Active Protocol: Document 01/16/24 10:34 SAK (Rec: 01/16/24 10:57 [facility] [id number]) Current Condition History of Current Condition Onset Date 15 yrs Current Complaints scott LE swelling History of Current Condition Reports long history of episodic swelling LE's, especially with travel, then when home takes 2-3 weeks for it to go away, more recently took 2-3 month. Happens with driving, trains, flying. Just got back from [place]. Doesn't wear compression stocking, weight makes him unable to do. Had scott TKA's 2014 and 2015. Has some knee high compression stockings, doesn't wear. Saw vascular surgeon who told him he didn't have venous insufficiency. 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 Has neuropathy, some sensory loss. Treatment Goals Patient/Caregiver Goals Decrease and be able to self manage lymphedema. PT-OP-C Subjective Start: 01/03/24 16:38 Freq: Status: Active Protocol: Document 01/16/24 10:34 [facility]AK (Rec: 01/16/24 10:57 [facility] [id number]) OP-PT Subjective Patient Comments Patient Comments Kept compression socks on rest of day after last session, was still better the next day (yesterday so didn't wear) n Hasn't worn yet today and feels it has gotten increased swelling again. PT-OP-G Mobility & Gait Start: 01/03/24 16:38 Freq: Status: Active Protocol: Document 01/07/24 09:49 [facility] (Rec: 01/07/24 11:14 [facility] [id number]) OP Gait Assessment Gait Gait Assistance Required: Independent Assistive Devices Assistive Device None Gait Deviations General Gait Pattern Decreased Stride Length, Decreased Feet Clearance PT-OP-J Posture/Palpation/Skin Start: 01/03/24 16:38 Freq: Status: Active Protocol: Document 01/07/24 09:49 [facility] (Rec: 01/07/24 11:14 [facility] [id number]) Palpation Assessment Location scott LE's Palpation Findings Edema,Soft Tissue Tightness Palpation Details no increased warmth or fibrosis Skin Assessment Other Assessments Skin Assessment Comments Dry but no thickening or fibrosis, no increased warmch, no discoloration. Several regions of varicosiy scott LE's PT-OP-K Range of Motion Start: 01/03/24 16:38 Freq: Status: Active Protocol: Document 01/07/24 09:49 [facility]AK (Rec: 01/07/24 11:14 [facility] [id number]) Hip Goniometric Range of Motion Hip scott Hip ROM WFL Yes Knee Goniometric Range of Motion Knee scott Knee ROM WFL Yes Ankle and Foot Goniometric Range of Motion Ankle and Foot scott Ankle/Foot ROM WFL No Dorsiflexion with Knee Flexed 0 Dorsiflexion with Knee Extended 5 Plantarflexion 40 Ankle and Foot ROM Limitations ROM Limitations Soft Tissue Tightness,Swelling PT-OP-L Special Tests Start: 01/03/24 16:38 Freq: Status: Active Protocol: Document 01/07/24 09:49 [facility] (Rec: 01/07/24 17:28 [facility] [id number]) Special Tests Other Special Tests Special Tests Stemmer: positive scott PT-OP-N Lymphedema Start: 01/03/24 16:38 Freq: Status: Active Protocol: Document 01/16/24 10:34 [facility] (Rec: 01/16/24 10:57 [facility] [id number]) Lymphedema Measurements Lower Extremity Circumference Measurements Right Affected MT Heads 26.9 cm Mid-foot 28.5 cm Medial Malleolus 36.6 cm 10 cm From Medial Malleolus 34 cm 20 cm From Medial Malleolus 44 cm 30 cm From Medial Malleolus 51 cm 40 cm From Medial Malleolus 47.5 cm 50 cm From Medial Malleolus 57.4 cm 60 cm From Medial Malleolus 64.7 cm Knee Joint 53.6 cm Left Affected MT Heads 27.2 cm Mid-foot 30 cm Medial Malleolus 37.3 cm 10 cm From Medial Malleolus 36 cm 20 cm From Medial Malleolus 47.5 cm 30 cm From Medial Malleolus 53.2 cm 40 cm From Medial Malleolus 47.5 cm 50 cm From Medial Malleolus 58.5 cm 60 cm From Medial Malleolus 66.5 cm Knee Joint 53.7 cm PT-OP-Q Treatments Start: 01/03/24 16:38 Freq: Status: Active Protocol: Document 01/16/24 10:34 [facility] (Rec: 01/16/24 10:57 [facility] [id number]) Cardio Equipment Recumbent Stepper (Sci-Fit) Duration (Minutes) 10 Resistance 2 Seat Position 16 Other to facilitate lymphatic flow Lymphedema Treatment Manual Lymphatic Drainage Location performed and included patient instruction Lymphedema Wrapping Other application of compression stockings with donning aid with assist. Neither cage or slider worked well for patient ; PT manual assist, shown use of Dycem to assist with putting stockings on Sequential Lymphedema Exercises Location scott LE's Comments Sci-Fit x 10 min as above Compression Garment Assessment Compression Garment Assessment Details Cont to wear thinner compression stockings, Patient Education Other issued handouts regarding plane travel, precautions. PT-OP-R Modalities Start: 01/03/24 16:38 Freq: Status: Active Protocol: Document 01/16/24 10:34 [facility] (Rec: 01/16/24 10:57 [facility] [id number]) Compression Pump Treatment Treatment Location scott LE's Pressure Amount (mmHg) (mmHG) 40 Inflation Time (Seconds) 30 Deflation Time (Seconds) 10 Treatment Tolerance Good Treatment Comments during MLD to opposite LE. PT-OP-T Assessment and Plan Start: 01/03/24 16:38 Freq: Status: Active Protocol: Document 01/16/24 10:34 [facility] (Rec: 01/16/24 10:57 [facility] [id number]) Physical Therapy Assessment Goals Three Impairment decreased ankle ROM and flexibility impacting function Short Term Goal (STG) Patient will be instructed in ROM and flexibility exercises for scott ankles STG Duration 03/02/24 Penitentiary Goal (LTG) Improve ROM and flexibility to WNL for improved function scott ankles LTG Duration 04/08/24 Two Impairment Lymphedema Life impact scale 28% Short Term Goal (STG) Decrease Lymphedema Life Impact Scale to no greater than 18% as measure of improved activity tolerance and quality of life STG Duration 03/02/24 Penitentiary Goal (LTG) Decrease Lymphedema Life Impact Scale to no greater than 10% as measure of improved activity tolerance and quality of life LTG Duration 04/08/24 One Impairment Lymphedema scott LE's Short Term Goal (STG) Patient will be instructed in all aspects of lymphedema self -care to include skin care, elevation, self-massage, self- bandaging/compression options, and lymphedema exercises. STG Duration 03/02/24 Leather Flesher Goal (LTG) Decrease patient?s lymphedema to a stable level (no increase or decrease greater than 1 cm over the course of 1 week), patient to be independent with all aspects of self-care for lymphedema, and will obtain appropriate compression garment for lymphedema management in the home. LTG Duration 04/08/24 Progress Towards Goals Progress Towards Goals Progressing Toward Goals Assessment Summary Assessment Continue to decrease circumferential measurements most of scott LE's, though scott feet and upper calf and knee a little increased (see measurements). Patient compliant to self care except didn't wear compression stockings this am. Good progress overall. Physical Therapy Plan Frequency and Duration Frequency of Treatment 20 visits Duration of treatment (weeks) 12 Plan of Care Start Date 01/07/24 Plan of Care End Date 04/08/24 Therapeutic Interventions Therapeutic Interventions Home Exercise Program, Lymphedema Management,Manual Therapy,Patient/Caregiver Education,Self-Care/Home Management,Soft Tissue Mobilization,Taping, Therapeutic Exercises Modalities Vasopneumatic Devices Next Visit Focus/Plan Next Note Type Treatment Note Next Visit Plan Continue CDT, continue pt ed, problem solving for compression stockings. Cont encouragement in aquatic exercise.
--- NOTE | 2024-01-21 10:47 | PT.OTN ---
Current Diagnoses Lymphedema, not elsewhere classified (01/21/24) Soft tissue disorder, unspecified (01/21/24) Physical Therapy Treatment Note PT-OP-A Visit Information Start: 01/03/24 16:38 Freq: Status: Active Protocol: Document 01/21/24 09:47 SAK (Rec: 01/21/24 10:25 [facility] [id number]) Out-Patient Physical Therapy Visit Information Visit Information Visit Type Treatment Note Visit Start Time 09:48 Visit Stop Time 11:15 Visit Number 5 Evaluation Information Evaluation Date 01/07/24 PT-OP-B Current Condition Start: 01/03/24 16:38 Freq: Status: Active Protocol: Document 01/21/24 09:47 SAK (Rec: 01/21/24 10:25 [facility] [id number]) Current Condition History of Current Condition Onset Date 15 yrs Current Complaints scott LE swelling History of Current Condition Reports long history of episodic swelling LE's, especially with travel, then when home takes 2-3 weeks for it to go away, more recently took 2-3 month. Happens with driving, trains, flying. Just got back from [place]. Doesn't wear compression stocking, weight makes him unable to do. Had scott TKA's 2014 and 2015. Has some knee high compression stockings, doesn't wear. Saw vascular surgeon who told him he didn't have venous insufficiency. 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 Has neuropathy, some sensory loss. Treatment Goals Patient/Caregiver Goals Decrease and be able to self manage lymphedema. PT-OP-C Subjective Start: 01/03/24 16:38 Freq: Status: Active Protocol: Document 01/21/24 09:47 SAK (Rec: 01/21/24 10:25 [facility] [id number]) OP-PT Subjective Patient Comments Patient Comments Low energy today. Reports feeling feet smaller. PT-OP-G Mobility & Gait Start: 01/03/24 16:38 Freq: Status: Active Protocol: Document 01/07/24 09:49 SAK (Rec: 01/07/24 11:14 SAK [id number]) OP Gait Assessment Gait Gait Assistance Required: Independent Assistive Devices Assistive Device None Gait Deviations General Gait Pattern Decreased Stride Length, Decreased Feet Clearance PT-OP-J Posture/Palpation/Skin Start: 01/03/24 16:38 Freq: Status: Active Protocol: Document 01/07/24 09:49 SAK (Rec: 01/07/24 11:14 [facility] [id number]) Palpation Assessment Location scott LE's Palpation Findings Edema,Soft Tissue Tightness Palpation Details no increased warmth or fibrosis Skin Assessment Other Assessments Skin Assessment Comments Dry but no thickening or fibrosis, no increased warmch, no discoloration. Several regions of varicosiy scott LE's PT-OP-K Range of Motion Start: 01/03/24 16:38 Freq: Status: Active Protocol: Document 01/07/24 09:49 [facility] (Rec: 01/07/24 11:14 [facility] [id number]) Hip Goniometric Range of Motion Hip scott Hip ROM WFL Yes Knee Goniometric Range of Motion Knee scott Knee ROM WFL Yes Ankle and Foot Goniometric Range of Motion Ankle and Foot scott Ankle/Foot ROM WFL No Dorsiflexion with Knee Flexed 0 Dorsiflexion with Knee Extended 5 Plantarflexion 40 Ankle and Foot ROM Limitations ROM Limitations Soft Tissue Tightness,Swelling PT-OP-L Special Tests Start: 01/03/24 16:38 Freq: Status: Active Protocol: Document 01/07/24 09:49 [facility] (Rec: 01/07/24 17:28 [facility] [id number]) Special Tests Other Special Tests Special Tests Stemmer: positive scott PT-OP-N Lymphedema Start: 01/03/24 16:38 Freq: Status: Active Protocol: Document 01/21/24 09:47 [facility] (Rec: 01/21/24 10:25 [facility] [id number]) Lymphedema Measurements Lower Extremity Circumference Measurements Right Affected MT Heads 26.5 cm Mid-foot 27.5 cm Medial Malleolus 36.3 cm 10 cm From Medial Malleolus 33.7 cm 20 cm From Medial Malleolus 43.9 cm 30 cm From Medial Malleolus 49.8 cm 40 cm From Medial Malleolus 47.4 cm 50 cm From Medial Malleolus 57.8 cm 60 cm From Medial Malleolus 65.8 cm Knee Joint 52.3 cm Left Affected MT Heads 26.4 cm Mid-foot 26.8 cm Medial Malleolus 36.5 cm 10 cm From Medial Malleolus 35.7 cm 20 cm From Medial Malleolus 46.5 cm 30 cm From Medial Malleolus 51.6 cm 40 cm From Medial Malleolus 46.3 cm 50 cm From Medial Malleolus 59.3 cm 60 cm From Medial Malleolus 66.8 cm Knee Joint 50.9 cm PT-OP-Q Treatments Start: 01/03/24 16:38 Freq: Status: Active Protocol: Document 01/21/24 09:47 [facility] (Rec: 01/21/24 10:25 [facility] [id number]) Cardio Equipment Recumbent Stepper (Sci-Fit) Duration (Minutes) 10 Resistance 2 Seat Position 16 Other to facilitate lymphatic flow Lymphedema Treatment Manual Lymphatic Drainage Location scott LE's Comments sequential pneumatic pump on opposite side during MLD Lymphedema Wrapping Other application of compression stockings with donning aid with assist. Neither cage or slider worked well for patient ; PT manual assist, shown use of Dycem to assist with putting stockings on Sequential Lymphedema Exercises Location scott LE's Comments Sci-Fit x 10 min as above Compression Garment Assessment Compression Garment Assessment Details Cont to wear thinner compression stockings, encouraging patient to go to [facility] to try off the shelf . PT-OP-R Modalities Start: 01/03/24 16:38 Freq: Status: Active Protocol: Document 01/21/24 09:47 [facility] (Rec: 01/21/24 10:47 [facility] [id number]) Compression Pump Treatment Treatment Location scott LE's Pressure Amount (mmHg) (mmHG) 40 Inflation Time (Seconds) 30 Deflation Time (Seconds) 10 Treatment Tolerance Good Treatment Comments during MLD to opposite LE. PT-OP-T Assessment and Plan Start: 01/03/24 16:38 Freq: Status: Active Protocol: Document 01/21/24 09:47 [facility] (Rec: 01/21/24 10:25 [facility] [id number]) Physical Therapy Assessment Goals Three Impairment decreased ankle ROM and flexibility impacting function Short Term Goal (STG) Patient will be instructed in ROM and flexibility exercises for scott ankles STG Duration 03/02/24 Jail Goal (LTG) Improve ROM and flexibility to WNL for improved function scott ankles LTG Duration 04/08/24 Two Impairment Lymphedema Life impact scale 28% Short Term Goal (STG) Decrease Lymphedema Life Impact Scale to no greater than 18% as measure of improved activity tolerance and quality of life STG Duration 03/02/24 Database Marketing Specialist Goal (LTG) Decrease Lymphedema Life Impact Scale to no greater than 10% as measure of improved activity tolerance and quality of life LTG Duration 04/08/24 One Impairment Lymphedema scott LE's Short Term Goal (STG) Patient will be instructed in all aspects of lymphedema self -care to include skin care, elevation, self-massage, self- bandaging/compression options, and lymphedema exercises. STG Duration 03/02/24 Database Marketing Specialist Goal (LTG) Decrease patient?s lymphedema to a stable level (no increase or decrease greater than 1 cm over the course of 1 week), patient to be independent with all aspects of self-care for lymphedema, and will obtain appropriate compression garment for lymphedema management in the home. LTG Duration 04/08/24 Progress Towards Goals Progress Towards Goals Progressing Toward Goals Assessment Summary Assessment Decreased circumferential measurements scott LE most measurements, cont to decrease . Hasn't tried thicker compression stockings for fit yet. Encouraged to go to [facility] to try off the shelf compression stockings. Continued encouragement for aquatic exercise, fitness center. Physical Therapy Plan Frequency and Duration Frequency of Treatment 20 visits Duration of treatment (weeks) 12 Plan of Care Start Date 01/07/24 Plan of Care End Date 04/08/24 Therapeutic Interventions Therapeutic Interventions Home Exercise Program, Lymphedema Management,Manual Therapy,Patient/Caregiver Education,Self-Care/Home Management,Soft Tissue Mobilization,Taping, Therapeutic Exercises Modalities Vasopneumatic Devices Next Visit Focus/Plan Next Note Type Treatment Note Next Visit Plan Continue CDT, ensure appropriate compression garments.
--- NOTE | 2024-01-29 12:56 | PT.OTN ---
Current Diagnoses Lymphedema, not elsewhere classified (01/29/24) Soft tissue disorder, unspecified (01/29/24) Physical Therapy Treatment Note PT-OP-A Visit Information Start: 01/03/24 16:38 Freq: Status: Active Protocol: Document 01/29/24 09:47 SAK (Rec: 01/29/24 10:33 [facility] [id number]) Out-Patient Physical Therapy Visit Information Visit Information Visit Type Treatment Note Visit Start Time 09:48 Visit Stop Time 11:15 Visit Number 6 Evaluation Information Evaluation Date 01/07/24 PT-OP-B Current Condition Start: 01/03/24 16:38 Freq: Status: Active Protocol: Document 01/29/24 09:47 SAK (Rec: 01/29/24 10:33 [facility] [id number]) Current Condition History of Current Condition Onset Date 15 yrs Current Complaints scott LE swelling History of Current Condition Reports long history of episodic swelling LE's, especially with travel, then when home takes 2-3 weeks for it to go away, more recently took 2-3 month. Happens with driving, trains, flying. Just got back from [place]. Doesn't wear compression stocking, weight makes him unable to do. Had scott TKA's 2014 and 2015. Has some knee high compression stockings, doesn't wear. Saw vascular surgeon who told him he didn't have venous insufficiency. 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 Has neuropathy, some sensory loss. Treatment Goals Patient/Caregiver Goals Decrease and be able to self manage lymphedema. PT-OP-C Subjective Start: 01/03/24 16:38 Freq: Status: Active Protocol: Document 01/29/24 09:47 SAK (Rec: 01/29/24 10:33 [facility] [id number]) OP-PT Subjective Patient Comments Patient Comments Reports legs were skinny since last treatment until spent a long time reading with legs down yesterday. Went down some last night. PT-OP-G Mobility & Gait Start: 01/03/24 16:38 Freq: Status: Active Protocol: Document 01/07/24 09:49 SAK (Rec: 01/07/24 11:14 [facility] [id number]) OP Gait Assessment Gait Gait Assistance Required: Independent Assistive Devices Assistive Device None Gait Deviations General Gait Pattern Decreased Stride Length, Decreased Feet Clearance PT-OP-J Posture/Palpation/Skin Start: 01/03/24 16:38 Freq: Status: Active Protocol: Document 01/07/24 09:49 [facility] (Rec: 01/07/24 11:14 [facility] [id number]) Palpation Assessment Location scott LE's Palpation Findings Edema,Soft Tissue Tightness Palpation Details no increased warmth or fibrosis Skin Assessment Other Assessments Skin Assessment Comments Dry but no thickening or fibrosis, no increased warmch, no discoloration. Several regions of varicosiy scott LE's PT-OP-K Range of Motion Start: 01/03/24 16:38 Freq: Status: Active Protocol: Document 01/07/24 09:49 [facility] (Rec: 01/07/24 11:14 [facility] [id number]) Hip Goniometric Range of Motion Hip scott Hip ROM WFL Yes Knee Goniometric Range of Motion Knee scott Knee ROM WFL Yes Ankle and Foot Goniometric Range of Motion Ankle and Foot scott Ankle/Foot ROM WFL No Dorsiflexion with Knee Flexed 0 Dorsiflexion with Knee Extended 5 Plantarflexion 40 Ankle and Foot ROM Limitations ROM Limitations Soft Tissue Tightness,Swelling PT-OP-L Special Tests Start: 01/03/24 16:38 Freq: Status: Active Protocol: Document 01/07/24 09:49 [facility] (Rec: 01/07/24 17:28 [facility] [id number]) Special Tests Other Special Tests Special Tests Stemmer: positive scott PT-OP-N Lymphedema Start: 01/03/24 16:38 Freq: Status: Active Protocol: Document 01/29/24 09:47 [facility] (Rec: 01/29/24 10:33 [facility] [id number]) Lymphedema Measurements Lower Extremity Circumference Measurements Right Affected MT Heads 25.6 cm Mid-foot 27.6 cm Medial Malleolus 36.2 cm 10 cm From Medial Malleolus 34.2 cm 20 cm From Medial Malleolus 44.7 cm 30 cm From Medial Malleolus 50.1 cm 40 cm From Medial Malleolus 47.3 cm 50 cm From Medial Malleolus 57.7 cm 60 cm From Medial Malleolus 66.7 cm Knee Joint 51.8 cm Left Affected MT Heads 26.8 cm Mid-foot 29.3 cm Medial Malleolus 36 cm 10 cm From Medial Malleolus 36.3 cm 20 cm From Medial Malleolus 47.4 cm 30 cm From Medial Malleolus 52.5 cm 40 cm From Medial Malleolus 46.5 cm 50 cm From Medial Malleolus 58.7 cm 60 cm From Medial Malleolus 67.5 cm Knee Joint 53.5 cm PT-OP-Q Treatments Start: 01/03/24 16:38 Freq: Status: Active Protocol: Document 01/29/24 09:47 [facility] (Rec: 01/29/24 10:33 [facility] [id number]) Cardio Equipment Recumbent Stepper (Sci-Fit) Duration (Minutes) 10 Resistance 2 Seat Position 16 Other to facilitate lymphatic flow Lymphedema Treatment Manual Lymphatic Drainage Location scott LE's Comments sequential pneumatic pump on opposite side during MLD Lymphedema Wrapping Other application of compression stockings with donning aid with assist. Neither cage or slider worked well for patient ; PT manual assist, shown use of Dycem to assist with putting stockings on Sequential Lymphedema Exercises Location scott LE's Comments Sci-Fit x 10 min as above Compression Garment Assessment Compression Garment Assessment Details Patient to get prescription from his doctor and call [facility] for an appointment to get knee high compression. PT-OP-R Modalities Start: 01/03/24 16:38 Freq: Status: Active Protocol: Document 01/29/24 09:47 [facility] (Rec: 01/29/24 10:33 [facility] [id number]) Compression Pump Treatment Treatment Location scott LE's Pressure Amount (mmHg) (mmHG) 40 Inflation Time (Seconds) 30 Deflation Time (Seconds) 10 Treatment Tolerance Good Treatment Comments during MLD to opposite LE. PT-OP-T Assessment and Plan Start: 01/03/24 16:38 Freq: Status: Active Protocol: Document 01/29/24 09:47 [facility] (Rec: 01/29/24 10:33 [facility] [id number]) Physical Therapy Assessment Goals Three Impairment decreased ankle ROM and flexibility impacting function Short Term Goal (STG) Patient will be instructed in ROM and flexibility exercises for scott ankles STG Duration 03/02/24 Long-Term Goal (LTG) Improve ROM and flexibility to WNL for improved function scott ankles LTG Duration 04/08/24 Two Impairment Lymphedema Life impact scale 28% Short Term Goal (STG) Decrease Lymphedema Life Impact Scale to no greater than 18% as measure of improved activity tolerance and quality of life STG Duration 03/02/24 Special Education Instructor Goal (LTG) Decrease Lymphedema Life Impact Scale to no greater than 10% as measure of improved activity tolerance and quality of life LTG Duration 04/08/24 One Impairment Lymphedema scott LE's Short Term Goal (STG) Patient will be instructed in all aspects of lymphedema self -care to include skin care, elevation, self-massage, self- bandaging/compression options, and lymphedema exercises. STG Duration 03/02/24 Long-Term Goal (LTG) Decrease patient?s lymphedema to a stable level (no increase or decrease greater than 1 cm over the course of 1 week), patient to be independent with all aspects of self-care for lymphedema, and will obtain appropriate compression garment for lymphedema management in the home. LTG Duration 04/08/24 Progress Towards Goals Progress Towards Goals Progressing Toward Goals Assessment Summary Assessment Some increase in measurements today due to not wearing compresion and sitting with legs hanging down. Patient to request prescription from physician for compression stockings (given info from PT) and instructed to call [facility] to see if they have any off the shelf compression garments that would work for him. Physical Therapy Plan Frequency and Duration Frequency of Treatment 20 visits Duration of treatment (weeks) 12 Plan of Care Start Date 01/07/24 Plan of Care End Date 04/08/24 Therapeutic Interventions Therapeutic Interventions Home Exercise Program, Lymphedema Management,Manual Therapy,Patient/Caregiver Education,Self-Care/Home Management,Soft Tissue Mobilization,Taping, Therapeutic Exercises Modalities Vasopneumatic Devices Next Visit Focus/Plan Next Note Type Treatment Note Next Visit Plan Continue CDT, ensure appropriate compression garments.
--- NOTE | 2024-01-31 11:02 | PT.OTN ---
Current Diagnoses Lymphedema, not elsewhere classified (01/31/24) Soft tissue disorder, unspecified (01/31/24) Physical Therapy Treatment Note PT-OP-A Visit Information Start: 01/03/24 16:38 Freq: Status: Active Protocol: Document 01/31/24 09:52 SAK (Rec: 01/31/24 11:02 [facility] [id number]) Out-Patient Physical Therapy Visit Information Visit Information Visit Type Treatment Note Visit Number 7 Evaluation Information Evaluation Date 01/07/24 PT-OP-B Current Condition Start: 01/03/24 16:38 Freq: Status: Active Protocol: Document 01/31/24 09:52 SAK (Rec: 01/31/24 11:02 [facility] [id number]) Current Condition History of Current Condition Onset Date 15 yrs Current Complaints scott LE swelling History of Current Condition Reports long history of episodic swelling LE's, especially with travel, then when home takes 2-3 weeks for it to go away, more recently took 2-3 month. Happens with driving, trains, flying. Just got back from [place]. Doesn't wear compression stocking, weight makes him unable to do. Had scott TKA's 2014 and 2015. Has some knee high compression stockings, doesn't wear. Saw vascular surgeon who told him he didn't have venous insufficiency. 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 Has neuropathy, some sensory loss. PT-OP-C Subjective Start: 01/03/24 16:38 Freq: Status: Active Protocol: Document 01/31/24 09:52 SAK (Rec: 01/31/24 11:02 [facility] [id number]) OP-PT Subjective Patient Comments Patient Comments No new c/o, feels swelling down today. PT-OP-G Mobility & Gait Start: 01/03/24 16:38 Freq: Status: Active Protocol: Document 01/07/24 09:49 SAK (Rec: 01/07/24 11:14 [facility] [id number]) OP Gait Assessment Gait Gait Assistance Required: Independent Assistive Devices Assistive Device None Gait Deviations General Gait Pattern Decreased Stride Length, Decreased Feet Clearance PT-OP-J Posture/Palpation/Skin Start: 01/03/24 16:38 Freq: Status: Active Protocol: Document 01/07/24 09:49 SAK (Rec: 01/07/24 11:14 [facility] [id number]) Palpation Assessment Location scott LE's Palpation Findings Edema,Soft Tissue Tightness Palpation Details no increased warmth or fibrosis Skin Assessment Other Assessments Skin Assessment Comments Dry but no thickening or fibrosis, no increased warmch, no discoloration. Several regions of varicosiy scott LE's PT-OP-K Range of Motion Start: 01/03/24 16:38 Freq: Status: Active Protocol: Document 01/07/24 09:49 [facility] (Rec: 01/07/24 11:14 [facility] [id number]) Hip Goniometric Range of Motion Hip scott Hip ROM WFL Yes Knee Goniometric Range of Motion Knee scott Knee ROM WFL Yes Ankle and Foot Goniometric Range of Motion Ankle and Foot scott Ankle/Foot ROM WFL No Dorsiflexion with Knee Flexed 0 Dorsiflexion with Knee Extended 5 Plantarflexion 40 Ankle and Foot ROM Limitations ROM Limitations Soft Tissue Tightness,Swelling PT-OP-L Special Tests Start: 01/03/24 16:38 Freq: Status: Active Protocol: Document 01/07/24 09:49 [facility] (Rec: 01/07/24 17:28 [facility] [id number]) Special Tests Other Special Tests Special Tests Stemmer: positive scott PT-OP-N Lymphedema Start: 01/03/24 16:38 Freq: Status: Active Protocol: Document 01/31/24 09:52 [facility] (Rec: 01/31/24 11:02 [facility] [id number]) Lymphedema Measurements Lower Extremity Circumference Measurements Right Affected MT Heads 26.5 cm Mid-foot 27 cm Medial Malleolus 34.6 cm 10 cm From Medial Malleolus 33 cm 20 cm From Medial Malleolus 44.5 cm 30 cm From Medial Malleolus 49.7 cm 40 cm From Medial Malleolus 46.2 cm 50 cm From Medial Malleolus 57.8 cm 60 cm From Medial Malleolus 64.7 cm Knee Joint 53.8 cm Left Affected MT Heads 25.3 cm Mid-foot 27.3 cm Medial Malleolus 35 cm 10 cm From Medial Malleolus 34.3 cm 20 cm From Medial Malleolus 46.9 cm 30 cm From Medial Malleolus 52 cm 40 cm From Medial Malleolus 46.3 cm 50 cm From Medial Malleolus 59 cm 60 cm From Medial Malleolus 67.5 cm Knee Joint 54 cm PT-OP-Q Treatments Start: 05/02/24 16:38 Freq: Status: Active Protocol: Document 01/31/24 09:52 [facility] (Rec: 01/31/24 11:02 [facility] [id number]) Cardio Equipment Recumbent Stepper (Sci-Fit) Duration (Minutes) 10 Resistance 2-3 Seat Position 16 Other to facilitate lymphatic flow Lymphedema Treatment Manual Lymphatic Drainage Location scott LE's Comments sequential pneumatic pump on opposite side during MLD Lymphedema Wrapping Other application of compression stockings with donning aid with assist. Neither cage or slider worked well for patient ; PT manual assist, shown use of Dycem to assist with putting stockings on Sequential Lymphedema Exercises Location scott LE's Comments Sci-Fit x 10 min as above Compression Garment Assessment Compression Garment Assessment Details Patient to get prescription from his doctor and call [facility] for an appointment to get knee high compression. PT-OP-R Modalities Start: 01/03/24 16:38 Freq: Status: Active Protocol: Document 01/31/24 09:52 [facility] (Rec: 01/31/24 11:02 [facility] [id number]) Compression Pump Treatment Treatment Location scott LE's Pressure Amount (mmHg) (mmHG) 40 Inflation Time (Seconds) 30 Deflation Time (Seconds) 10 Treatment Tolerance Good Treatment Comments during MLD to opposite LE. PT-OP-T Assessment and Plan Start: 01/03/24 16:38 Freq: Status: Active Protocol: Document 01/31/24 09:52 [facility] (Rec: 01/31/24 11:02 [facility] [id number]) Physical Therapy Assessment Goals Three Impairment decreased ankle ROM and flexibility impacting function Short Term Goal (STG) Patient will be instructed in ROM and flexibility exercises for scott ankles STG Duration 03/02/24 Correction Goal (LTG) Improve ROM and flexibility to WNL for improved function scott ankles LTG Duration 04/08/24 Two Impairment Lymphedema Life impact scale 28% Short Term Goal (STG) Decrease Lymphedema Life Impact Scale to no greater than 18% as measure of improved activity tolerance and quality of life STG Duration 03/02/24 Correction Goal (LTG) Decrease Lymphedema Life Impact Scale to no greater than 10% as measure of improved activity tolerance and quality of life LTG Duration 04/08/24 One Impairment Lymphedema scott LE's Short Term Goal (STG) Patient will be instructed in all aspects of lymphedema self -care to include skin care, elevation, self-massage, self- bandaging/compression options, and lymphedema exercises. STG Duration 03/02/24 Correction Goal (LTG) Decrease patient?s lymphedema to a stable level (no increase or decrease greater than 1 cm over the course of 1 week), patient to be independent with all aspects of self-care for lymphedema, and will obtain appropriate compression garment for lymphedema management in the home. LTG Duration 04/08/24 Progress Towards Goals Progress Towards Goals Progressing Toward Goals Assessment Summary Assessment Decreased circumferential measurements today, patient reporting has stayed reduced since last treatment. Wore compression stockings. Is going to make appointment with [facility] for fitting with compression stockings. Physical Therapy Plan Frequency and Duration Frequency of Treatment 20 visits Duration of treatment (weeks) 12 Plan of Care Start Date 01/07/24 Plan of Care End Date 04/08/24 Therapeutic Interventions Therapeutic Interventions Home Exercise Program, Lymphedema Management,Manual Therapy,Patient/Caregiver Education,Self-Care/Home Management,Soft Tissue Mobilization,Taping, Therapeutic Exercises Modalities Vasopneumatic Devices Next Visit Focus/Plan Next Note Type Treatment Note Next Visit Plan Continue CDT, consider submitting request for a sequential pneumatic pump.
--- NOTE | 2024-02-20 16:23 | PT.OTN ---
Current Diagnoses Lymphedema, not elsewhere classified (02/20/24) Soft tissue disorder, unspecified (02/20/24) Physical Therapy Treatment Note PT-OP-A Visit Information Start: 01/03/24 16:38 Freq: Status: Active Protocol: Document 02/20/24 08:11 SAK (Rec: 02/20/24 09:01 [facility] [id number]) Out-Patient Physical Therapy Visit Information Visit Information Visit Type Treatment Note Visit Start Time 08:15 Visit Stop Time 09:10 Visit Number 8 Evaluation Information Evaluation Date 01/07/24 PT-OP-B Current Condition Start: 01/03/24 16:38 Freq: Status: Active Protocol: Document 02/20/24 08:11 SAK (Rec: 02/20/24 09:01 [facility] [id number]) Current Condition History of Current Condition Onset Date 15 yrs Current Complaints scott LE swelling History of Current Condition Reports long history of episodic swelling LE's, especially with travel, then when home takes 2-3 weeks for it to go away, more recently took 2-3 month. Happens with driving, trains, flying. Just got back from [place]. Doesn't wear compression stocking, weight makes him unable to do. Had scott TKA's 2014 and 2015. Has some knee high compression stockings, doesn't wear. Saw vascular surgeon who told him he didn't have venous insufficiency. 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 Has neuropathy, some sensory loss. 910 PT-OP-C Subjective Start: 01/03/24 16:38 Freq: Status: Active Protocol: Document 02/20/24 08:11 SAK (Rec: 02/20/24 09:01 [facility] [id number]) OP-PT Subjective Patient Comments Patient Comments States was on his feet a lot last week, increased swelling, doesn't go back down like it used to. Doing skin care, exercise, compression, self massage, and elevation as instructed. present for instruction in lymphedema management. Patient interested in sequential pneumatic pump for home use. PT-OP-G Mobility & Gait Start: 01/03/24 16:38 Freq: Status: Active Protocol: Document 01/07/24 09:49 SAK (Rec: 01/07/24 11:14 [facility]AK [id number]) OP Gait Assessment Gait Gait Assistance Required: Independent Assistive Devices Assistive Device None Gait Deviations General Gait Pattern Decreased Stride Length, Decreased Feet Clearance PT-OP-J Posture/Palpation/Skin Start: 01/03/24 16:38 Freq: Status: Active Protocol: Document 01/07/24 09:49 SAK (Rec: 01/07/24 11:14 [facility] [id number]) Palpation Assessment Location scott LE's Palpation Findings Edema,Soft Tissue Tightness Palpation Details no increased warmth or fibrosis Skin Assessment Other Assessments Skin Assessment Comments Dry but no thickening or fibrosis, no increased warmch, no discoloration. Several regions of varicosiy scott LE's PT-OP-K Range of Motion Start: 01/03/24 16:38 Freq: Status: Active Protocol: Document 01/07/24 09:49 SAK (Rec: 01/07/24 11:14 [facility] [id number]) Hip Goniometric Range of Motion Hip scott Hip ROM WFL Yes Knee Goniometric Range of Motion Knee scott Knee ROM WFL Yes Ankle and Foot Goniometric Range of Motion Ankle and Foot scott Ankle/Foot ROM WFL No Dorsiflexion with Knee Flexed 0 Dorsiflexion with Knee Extended 5 Plantarflexion 40 Ankle and Foot ROM Limitations ROM Limitations Soft Tissue Tightness,Swelling PT-OP-L Special Tests Start: 01/03/24 16:38 Freq: Status: Active Protocol: Document 01/07/24 09:49 [facility] (Rec: 01/07/24 17:28 [facility] [id number]) Special Tests Other Special Tests Special Tests Stemmer: positive scott PT-OP-N Lymphedema Start: 01/03/24 16:38 Freq: Status: Active Protocol: Document 02/20/24 08:11 SAK (Rec: 02/20/24 09:01 [facility] [id number]) Lymphedema Measurements Lower Extremity Circumference Measurements Right Affected MT Heads 26.7 cm Mid-foot 27.3 cm Medial Malleolus 35.3 cm 10 cm From Medial Malleolus 34.8 cm 20 cm From Medial Malleolus 46.5 cm 30 cm From Medial Malleolus 49.4 cm 40 cm From Medial Malleolus 47.8 cm 50 cm From Medial Malleolus 58.5 cm 60 cm From Medial Malleolus 68.3 cm Knee Joint 54.2 cm Left Affected MT Heads 25.7 cm Mid-foot 36.5 cm Medial Malleolus 36 cm 10 cm From Medial Malleolus 38.6 cm 20 cm From Medial Malleolus 48.2 cm 30 cm From Medial Malleolus 51.4 cm 40 cm From Medial Malleolus 46 cm 50 cm From Medial Malleolus 60 cm 60 cm From Medial Malleolus 67 cm Knee Joint 54.5 cm PT-OP-Q Treatments Start: 01/03/24 16:38 Freq: Status: Active Protocol: Document 02/20/24 08:11 [facility] (Rec: 02/20/24 16:23 [facility] [id number]) Lymphedema Treatment Manual Lymphatic Drainage Location scott LE's Comments sequential pneumatic pump on opposite side during MLD Lymphedema Wrapping Other no bandaging or compression stockings; going to [facility] immediately after PT for fitting with compression stockings Compression Garment Assessment Compression Garment Assessment Details Patient to be fit today Other Other education of in all aspects of lymphedema care during treatment today except bandaging due to time constraints in appointment; she demonstrated good understanding. PT-OP-R Modalities Start: 01/03/24 16:38 Freq: Status: Active Protocol: Document 02/20/24 08:11 [facility] (Rec: 02/20/24 16:23 [facility] [id number]) Compression Pump Treatment Treatment Location scott LE's Pressure Amount (mmHg) (mmHG) 40 Inflation Time (Seconds) 30 Deflation Time (Seconds) 10 Treatment Tolerance Good Treatment Comments during MLD to opposite LE plus 20 min after PT-OP-T Assessment and Plan Start: 01/03/24 16:38 Freq: Status: Active Protocol: Document 02/20/24 08:11 [facility] (Rec: 02/20/24 09:01 [facility] [id number]) Physical Therapy Assessment Goals Three Impairment decreased ankle ROM and flexibility impacting function Short Term Goal (STG) Patient will be instructed in ROM and flexibility exercises for scott ankles 02/20/24: goal met STG Duration 03/02/24 Detention Goal (LTG) Improve ROM and flexibility to WNL for improved function scott ankles LTG Duration 04/08/24 Two Impairment Lymphedema Life impact scale 28% Short Term Goal (STG) Decrease Lymphedema Life Impact Scale to no greater than 18% as measure of improved activity tolerance and quality of life 02/20/24: decreased to 23%, goal progress STG Duration 03/02/[address] [employer] Goal (LTG) Decrease Lymphedema Life Impact Scale to no greater than 10% as measure of improved activity tolerance and quality of life LTG Duration 04/08/24 One Impairment Lymphedema scott LE's Short Term Goal (STG) Patient will be instructed in all aspects of lymphedema self -care to include skin care, elevation, self-massage, self- bandaging/compression options, and lymphedema exercises. 02/20/24: goal met STG Duration 03/02/24 Detention Goal (LTG) Decrease patient?s lymphedema to a stable level (no increase or decrease greater than 1 cm over the course of 1 week), patient to be independent with all aspects of self-care for lymphedema, and will obtain appropriate compression garment for lymphedema management in the home. 02/20/24: Patient measurements increased today after increased time on feet last week, has difficulty tolerating compression stockings, will need to obtain new. Not able to bandage himself. LTG Duration 04/08/24 Assessment Summary Assessment Patient has been seen for conservative treatment for lymphedema scott LE's since . He continues to have difficulty with management of his lymphedema despite instruction and compliance with elevation, skin care, lymphedema exercises, manual lymphatic drainage, and wearing compression. He is at high risk for complications of lymphedema which could include cellulitis. After not being seen in PT last week his circumferential measurements are significantly increased. Due to his body size as well as right shoulder pain he has difficulty with self massage and is not able to bandage his legs. Feel he would benefit highly from the use of a sequential pneumatic pump in the home to help him manage his lymphedema. He is in agreement. Physical Therapy Plan Frequency and Duration Frequency of Treatment 20 visits Duration of treatment (weeks) 12 Plan of Care Start Date 01/07/24 Plan of Care End Date 04/08/24 Therapeutic Interventions Therapeutic Interventions Home Exercise Program, Lymphedema Management,Manual Therapy,Patient/Caregiver Education,Self-Care/Home Management,Soft Tissue Mobilization,Taping, Therapeutic Exercises Modalities Vasopneumatic Devices Next Visit Focus/Plan Next Note Type Treatment Note Next Visit Plan Rrequest sequential pneumatic pump and train patient and if approved. Patient to get measured for new compression stockings when leaves today. Continue CDT.
--- NOTE | 2024-04-07 14:27 | PT.OTN ---
Current Diagnoses Lymphedema, not elsewhere classified (04/07/24) Soft tissue disorder, unspecified (04/07/24) Physical Therapy Treatment Note PT-OP-A Visit Information Start: 01/03/24 16:38 Freq: Status: Active Protocol: Document 04/07/24 13:44 SAK (Rec: 04/07/24 14:26 [facility] [id number]) Out-Patient Physical Therapy Visit Information Visit Information Visit Type Treatment Note Visit Start Time 13:44 Visit Stop Time 14:26 Visit Number 9 Evaluation Information Evaluation Date 01/07/24 PT-OP-B Current Condition Start: 01/03/24 16:38 Freq: Status: Active Protocol: Document 04/07/24 13:44 SAK (Rec: 04/07/24 14:26 [facility] [id number]) Current Condition History of Current Condition Onset Date 15 yrs Current Complaints scott LE swelling History of Current Condition Reports long history of episodic swelling LE's, especially with travel, then when home takes 2-3 weeks for it to go away, more recently took 2-3 month. Happens with driving, trains, flying. Just got back from [place]. Doesn't wear compression stocking, weight makes him unable to do. Had scott TKA's 2014 and 2015. Has some knee high compression stockings, doesn't wear. Saw vascular surgeon who told him he didn't have venous insufficiency. 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 Has neuropathy, some sensory loss. 910 PT-OP-C Subjective Start: 01/03/24 16:38 Freq: Status: Active Protocol: Document 04/07/24 13:44 SAK (Rec: 04/07/24 14:26 [facility] [id number]) OP-PT Subjective Patient Comments Patient Comments Reports he got XL compression stockings from [facility], but felt too tight and when took off took about 15 minutes to get off and skin very irritated. Hasn't worn since. Didn't contact [facility] yhet , agreed to with PT urging. PT-OP-G Mobility & Gait Start: 01/03/24 16:38 Freq: Status: Active Protocol: Document 01/07/24 09:49 SAK (Rec: 01/07/24 11:14 [facility] [id number]) OP Gait Assessment Gait Gait Assistance Required: Independent Assistive Devices Assistive Device None Gait Deviations General Gait Pattern Decreased Stride Length, Decreased Feet Clearance PT-OP-J Posture/Palpation/Skin Start: 01/03/24 16:38 Freq: Status: Active Protocol: Document 01/07/24 09:49 [facility] (Rec: 01/07/24 11:14 [facility] [id number]) Palpation Assessment Location scott LE's Palpation Findings Edema,Soft Tissue Tightness Palpation Details no increased warmth or fibrosis Skin Assessment Other Assessments Skin Assessment Comments Dry but no thickening or fibrosis, no increased warmch, no discoloration. Several regions of varicosiy scott LE's PT-OP-K Range of Motion Start: 01/03/24 16:38 Freq: Status: Active Protocol: Document 01/07/24 09:49 [facility] (Rec: 01/07/24 11:14 [facility] [id number]) Hip Goniometric Range of Motion Hip scott Hip ROM WFL Yes Knee Goniometric Range of Motion Knee scott Knee ROM WFL Yes Ankle and Foot Goniometric Range of Motion Ankle and Foot scott Ankle/Foot ROM WFL No Dorsiflexion with Knee Flexed 0 Dorsiflexion with Knee Extended 5 Plantarflexion 40 Ankle and Foot ROM Limitations ROM Limitations Soft Tissue Tightness,Swelling PT-OP-L Special Tests Start: 01/03/24 16:38 Freq: Status: Active Protocol: Document 01/07/24 09:49 [facility] (Rec: 01/07/24 17:28 [facility] [id number]) Special Tests Other Special Tests Special Tests Stemmer: positive scott PT-OP-N Lymphedema Start: 01/03/24 16:38 Freq: Status: Active Protocol: Document 02/20/24 08:11 [facility] (Rec: 02/20/24 09:01 [facility] [id number]) Lymphedema Measurements Lower Extremity Circumference Measurements Right Affected MT Heads 26.7 cm Mid-foot 27.3 cm Medial Malleolus 35.3 cm 10 cm From Medial Malleolus 34.8 cm 20 cm From Medial Malleolus 46.5 cm 30 cm From Medial Malleolus 49.4 cm 40 cm From Medial Malleolus 47.8 cm 50 cm From Medial Malleolus 58.5 cm 60 cm From Medial Malleolus 68.3 cm Knee Joint 54.2 cm Left Affected MT Heads 25.7 cm Mid-foot 36.5 cm Medial Malleolus 36 cm 10 cm From Medial Malleolus 38.6 cm 20 cm From Medial Malleolus 48.2 cm 30 cm From Medial Malleolus 51.4 cm 40 cm From Medial Malleolus 46 cm 50 cm From Medial Malleolus 60 cm 60 cm From Medial Malleolus 67 cm Knee Joint 54.5 cm PT-OP-Q Treatments Start: 01/03/24 16:38 Freq: Status: Active Protocol: Document 04/07/24 13:44 [facility] (Rec: 04/07/24 14:26 [facility] [id number]) Lymphedema Treatment Manual Lymphatic Drainage Location scott LE's Comments sequential pneumatic pump on opposite side during MLD Lymphedema Wrapping Other no bandaging or compression stockings; going to [facility] immediately after PT for fitting with compression stockings Compression Garment Assessment Compression Garment Assessment Details Patient reporting poor fit, hasn't been wearing. Will call [facility] to problem solve Other Other Education of patient and in use of sequential pneumatic pump for home use including set-up, donning and doffing, and problem solving. Issued for home use. Patient to contact company with any questions or problems. PT-OP-R Modalities Start: 01/03/24 16:38 Freq: Status: Active Protocol: Document 02/20/24 08:11 [facility] (Rec: 02/20/24 16:23 [facility] [id number]) Compression Pump Treatment Treatment Location scott LE's Pressure Amount (mmHg) (mmHG) 40 Inflation Time (Seconds) 30 Deflation Time (Seconds) 10 Treatment Tolerance Good Treatment Comments during MLD to opposite LE plus 20 min after PT-OP-T Assessment and Plan Start: 01/03/24 16:38 Freq: Status: Active Protocol: Document 04/07/24 13:44 SAK (Rec: 04/07/24 14:26 [facility] [id number]) Physical Therapy Assessment Goals Three Impairment decreased ankle ROM and flexibility impacting function Short Term Goal (STG) Patient will be instructed in ROM and flexibility exercises for scott ankles 02/20/24: goal met STG Duration 03/02/24 [employer] Goal (LTG) Improve ROM and flexibility to WNL for improved function scott ankles LTG Duration 04/08/24 Two Impairment Lymphedema Life impact scale 28% Short Term Goal (STG) Decrease Lymphedema Life Impact Scale to no greater than 18% as measure of improved activity tolerance and quality of life 02/20/24: decreased to 23%, goal progress STG Duration 03/02/24 [facility] Goal (LTG) Decrease Lymphedema Life Impact Scale to no greater than 10% as measure of improved activity tolerance and quality of life LTG Duration 04/08/24 One Impairment Lymphedema scott LE's Short Term Goal (STG) Patient will be instructed in all aspects of lymphedema self -care to include skin care, elevation, self-massage, self- bandaging/compression options, and lymphedema exercises. 02/20/24: goal met STG Duration 03/02/24 [employer] Goal (LTG) Decrease patient?s lymphedema to a stable level (no increase or decrease greater than 1 cm over the course of 1 week), patient to be independent with all aspects of self-care for lymphedema, and will obtain appropriate compression garment for lymphedema management in the home. 02/20/24: Patient measurements increased today after increased time on feet last week, has difficulty tolerating compression stockings, will need to obtain new. Not able to bandage himself. LTG Duration 04/08/24 Assessment Summary Assessment Patient and demonstrated good understanding of set up and use of Airos 8 pneumatic compression pump and were issued the pump for home use for patient. No further PT needs at this time. He will follow up with [facility] regarding compression stockings. Physical Therapy Plan Discharge Physical Therapy Discharge Reasons Goals Met
== END 2024-04-11 09:11 ==
LOC: PHYS 13:45
PROVIDERS: Family Provider Internal Medicine; PCP Internal Medicine; Referring Provider Internal Medicine; Visit Provider Internal Medicine
DX: I89.0 Lymphedema, not elsewhere classified (principal); M79.9 Soft tissue disorder, unspecified
CPT/HCPCS: 97016; 97110; 97140; 97162; 97535

== ENCOUNTER → 2024-06-25 12:13 | Outpatient (CLI) | payer MEDICARE, SELFPAY ==
--- NOTE | 2024-06-25 12:15 | EKG_ITS ---
[address] [address] Test Date: 2024-06-25 Pat Name: Prasanna Cummings Department: [facility] Room: Gender: Male Back End Developer: RAÚL : 1950 Requested By: Order Number: [id number] Reading MD: Ankur Alvarez Measurements Intervals [place] Rate: 65 P: 46 NV: 190 QRS: 30 QRSD: 100 T: 21 QT: 390 QTc: 405 Interpretive Statements Normal sinus rhythm with sinus arrhythmia Electronically Signed On 06-25-2024 13:40:04 PDT by Ankur Alvarez
[2024-06-25 13:04] LABS: Add Manual Diff / Slide Review NO; Basophils Absolute Auto 100 /uL (0-100); Basophils Percent Auto 0.8 % (0-2); Eosinophils Absolute Auto 400 /uL (0-450); Eosinophils Percent Auto 4.1 % (2-4); Hematocrit 44.8 % (41-53); Lymphocytes Absolute Auto 1400 /uL (1100-4500); Lymphocytes Percent Auto 15.3 % (25-40); Mean Corpuscular HGB Conc 33.4 % (30-36); Mean Corpuscular Hemoglobin 31.2 PG (26-34); Mean Corpuscular Volume 93.2 fL (80-100); Monocytes Absolute Auto 600 /uL (0-900); Monocytes Percent Auto 6.7 % (3-14); Neutrophils Absolute Auto 6500 /uL (1500-7000); Neutrophils Percent Auto 73.1 % (50-75); Platelet Count 201 X10^3/uL (150-400); Red Cell Distribution Width 14.1 % (11.6-14.8); White Blood Cell Count 8.9 X10^3/uL (4.5-11.0)
[2024-06-25 13:24] LABS: Blood Urea Nitrogen 21 mg/dL (9-20); Calcium 9.9 mg/dL (8.4-10.2); Carbon Dioxide 25 mmol/L (22-32); Chloride 102 mmol/L (98-107); Cholesterol 156 mg/dL (140-199); Estimated Glomerular Filt Rate > 60 mL/min (>60); Glucose 105 mg/dL (80-110); HDL Cholesterol 63 mg/dL (40-60); HEMOLYSIS < 15 (0-50); LDL Cholesterol Calculated 64 mg/dL (<100); Potassium 4.4 mmol/L (3.4-5.1); Sodium 135 mmol/L (137-145); Triglycerides 143 mg/dL (35-150)
[2024-06-25 14:51] LABS: Hemoglobin A1C% w Est Avg Glu 5.8 % (4.0-6.0)
== END ==
PROVIDERS: Family Provider Internal Medicine; PCP Internal Medicine; Referring Provider Orthopaedic Surgery Orthopaedic Surgery of the Spine; Visit Provider Orthopaedic Surgery Orthopaedic Surgery of the Spine
DX: Z01.818 Encounter for other preprocedural examination (principal); E11.65 Type 2 diabetes mellitus with hyperglycemia; Z01.812 Encounter for preprocedural laboratory examination
CPT/HCPCS: 80048; 80061; 83036; 85025; 93005

== ENCOUNTER 2024-08-04 13:45 | Day surgery (SDC) | payer MEDICARE, SELFPAY ==
[2024-07-29 12:48] VITALS: BMI 46.4
[2024-08-04 14:11] VITALS: BP 156/83; PULSE 75; RESP 15; TEMP 36.6; O2SAT 98; BMI 46.4
[2024-08-04] MEDS: LACTATED RINGERS 1,000 ML 42 ML IV (14:32)
--- NOTE | 2024-08-04 15:30 | PM.PREOP ---
Pre-operative Note Interval Note History & Physical reviewed/Exam performed by Physician: Yes Changes to H&P: No
[2024-08-04] MEDS: CEFAZOLIN VIAL 3 GM in SODIUM CHLORIDE 0.9% 100 ML IV (16:23)
[2024-08-04] MEDS: BUPIVACAINE 0.25% (PF) 30 ML, EPINEPHrine 0.15 MG INJ (16:33)
--- NOTE | 2024-08-04 16:40 | SUR.OPER ---
Prone on spine table, head in foam head support, padded chest and pelvic supports, gel pad at knees, lower legs supported by pillows; nipples, genitalia and toes free of pressure, arms secured on foam padded arm boards at <90 degrees abduction. Tape over blanket at thigh secured to table. Sides of abdomen padded with gel pads bilaterally.
--- NOTE | 2024-08-04 17:02 | DI.RAD.S_ITS ---
PROCEDURE: XR LUMBAR SPINE 2-3V INDICATIONS: L3-4 LAMINECTOMY TECHNIQUE: 2 fluoroscopic views of the lumbar spine were acquired. COMPARISON: [facility] [place], XR LUMBAR SPINE 2 OR 3 VIEWS, 03/29/2023, 10:40. [facility] [place], RF, LUMBAR SPINE INTERIAMINAR, 12/10/2023, 9:12. FINDINGS: Intraoperative images show and L3-L4 laminectomy in progress. IMPRESSION: Intraoperative L3-L4 laminectomy images. Please see the operative report for further details. Dictated by: Fritz Britt M.D. on 08/05/2024 at 11:57 Approved by: Fritz Britt M.D. on 08/05/2024 at 11:58
--- NOTE | 2024-08-04 17:05 | PM.OP.1 ---
Operative Date/Time/Diagnoses Date of procedure: 08/04/24 Time of procedure: 16:00 Pre-op diagnosis: 1. L3-4 spinal stenosis with neurogenic claudication Post-op diagnosis: same Procedure & Clinicians Procedure: 1. L3-4 right hemilaminectomy 2. Utilization of microsurgical technique and operating microscope Same procedure as scheduled: Yes Indications: Patient has been having chronic back pain and worsening lumbar radiculopathy and symptoms of neurogenic claudication. Patient was found have severe L3-4 spinal stenosis correlating with his symptoms. Patient failed multiple conservative management with worsening pain weakness and numbness in his lower extremity. Patient has been having difficulty performing activity of daily living. After discussing risks benefits of treatment options, patient elected proceed with surgery. Surgeon: [facility] Physician Assistant: Lacy Blanco Click Yes if Unassisted: No Anesthesia Type: General Operative Notes Closure Type: primary Specimen(s): none sent Estimated Blood Loss (mL): 5 Blood products transfused: none Procedure in detail: Patient was seen in the preoperative area. Risks and benefits of the surgery was discussed with the patient. Informed consent was obtained from the patient and placed in the chart. Surgical site was marked. Patient was taken to the operative room. General anesthesia was administered. Prophylactic antibiotic was given to the patient less than 30 min before the incision was made. Patient was placed into a prone position on the Kiko table. Patient's back was then prepped and draped in the sterile fashion. Time-out was performed at this time. Using AP and lateral C-arm imaging the interval between L3-4 was identified and marked on patient's back. A 1 inch incision 1 in from midline was made on the right side. The fascia was incised in line with skin incision. Globus MARS retractors was placed inside the incision and docked onto the L3 lamina. Using microsurgical technique and operating microscope, a L3 hemilaminectomy was performed using a Kerrison rongeur. Liagamentum flavum was resected at the site of the laminotomy. The epidural space was found to have significant epidural lipomas contributing to additional central stenosis. The epidural lipomas were resected using pituitary and kerrison rongeur. After the laminectomy was completed, the area medial lateral superior and inferior to the area of the laminectomy was inspected and explored using a micro curette. No other impinging structure was identified. The wound was then irrigated with sterile normal saline. 40 mg Depo-Medrol was placed into the epidural space. The deep fascia was closed with 1-0 Vicryl. The subcutaneous tissue was closed with 2-0 Vicryl. The skin was closed with skin makeda. Patient tolerated the procedure well. There were no complications. Patient was transferred recovery room in stable condition. The Operation could not have been safely performed without compromising the technical result or length of the procedure, without the assistance of a skilled nursing surgical services director. The nursing surgical services director was medically necessary for proper positioning, retraction and manipulation of instruments, proper exposure, surgical preparation, and manipulation of tissue. Complications: none Post-operative Condition: stable Disposition: PACU Plan for aftercare: DIscharge to home
[2024-08-04 17:20] VITALS: BP 147/88; PULSE 79; RESP 11; TEMP 37.1; O2SAT 96
[2024-08-04 17:27] VITALS: BP 159/92; PULSE 76; RESP 6; O2SAT 97
[2024-08-04] MEDS: OXYCODONE IR 5 MG TABLET PO (17:34)
[2024-08-04 17:36] VITALS: BP 183/91; PULSE 71; RESP 8; O2SAT 96
== END 2024-08-04 17:58 | disposition home or self-care (01) ==
PROVIDERS: Family Provider Internal Medicine; PCP Internal Medicine; Referring Provider Orthopaedic Surgery Orthopaedic Surgery of the Spine; Visit Provider Orthopaedic Surgery Orthopaedic Surgery of the Spine
PROC: (CPT 63047; principal; 2024-08-04 15:30)
DX: M48.062 Spinal stenosis, lumbar region with neurogenic claudication (principal); M54.16 Radiculopathy, lumbar region; D17.79 Benign lipomatous neoplasm of other sites
CPT/HCPCS: 63047; 72100; 76000; J0171; J0690; J1100; J1171; J2405; J2704; J2919; J3010